=== PATIENT | female | born 1940 | race Caucasian/White ===

== ENCOUNTER → 2016-04-19 | Outpatient (CLI) | payer MEDICARE ==
[~2016-04-19] MED LIST: ASPI1TAB PO; FERR325T3 PO; FURO20TA2 PO; INSULANT SC; ISOS30TA4 PO; LISI10TA4 PO; METF500T PO; OMEP20CA3 PO; SIMV10TA2 PO; ZOLO50TA PO
[2016-04-19 13:21] LABS: MEAN CORPUSCULAR HEMOGLOBIN 26.4 pg (27.0-33.0); MEAN CORPUSCULAR HGB CONC 32.6 g/dl (32.0-36.5); RED CELL DISTRIBUTION WIDTH 15.6 % (11.5-14.5); WHITE BLOOD COUNT 7.4 K/mm3 (4.0-10.0)
[2016-04-19 13:42] LABS: ALBUMIN 3.7 GM/DL (3.2-5.2); ALBUMIN/GLOBULIN RATIO 0.93 (1.00-1.93); ALKALINE PHOSPHATASE 90 U/L (45-117); ALT/SGPT 16 U/L (12-78); ANION GAP 11 MEQ/L (8-16); AST/SGOT 11 U/L (15-37); BILIRUBIN,TOTAL 0.3 MG/DL (0.2-1.0); BLOOD UREA NITROGEN 17 MG/DL (7-18); CALCIUM LEVEL 8.6 MG/DL (8.8-10.2); CARBON DIOXIDE LEVEL 31 MEQ/L (21-32); CHLORIDE LEVEL 99 MEQ/L (98-107); CREATININE FOR GFR 0.94 MG/DL (0.55-1.02); FERRITIN 27 NG/ML (8-252); GLOMERULAR FILTRATION RATE > 60.0 (>39); GLUCOSE, FASTING 138 MG/DL (83-110); PERCENT SATURATION 12.6 % (13.2-37.4); POTASSIUM SERUM 3.6 MEQ/L (3.5-5.1); SODIUM LEVEL 141 MEQ/L (136-145); TOTAL IRON BINDING CAPACITY 427 UG/DL (250-450); TOTAL PROTEIN 7.7 GM/DL (6.4-8.2)
[2016-04-19 14:03] LABS: BANDS 1 % (< 11); EOSINOPHILS 2 % (0-5)
[2016-04-19 14:04] LABS: ANISOCYTOSIS 1+
== END ==
LOC: M WUC 09:45
PROVIDERS: ATTEND Family Medicine
DX: D64.9 Anemia, unspecified (principal); E11.9 Type 2 diabetes mellitus without complications

== ENCOUNTER → 2016-11-16 | Outpatient (CLI) | payer MEDICARE ==
[~2016-11-16] MED LIST changes: -METF500T PO; +METF500T13 PO
[2016-11-16 13:06] LABS: ALBUMIN 3.6 GM/DL (3.2-5.2); ALKALINE PHOSPHATASE 98 U/L (45-117); ALT/SGPT 13 U/L (12-78); ANION GAP 8 MEQ/L (8-16); AST/SGOT 9 U/L (15-37); BILIRUBIN,TOTAL 0.3 MG/DL (0.2-1.0); BLOOD UREA NITROGEN 14 MG/DL (7-18); CALCIUM LEVEL 8.8 MG/DL (8.8-10.2); CARBON DIOXIDE LEVEL 28 MEQ/L (21-32); CHLORIDE LEVEL 105 MEQ/L (98-107); CHOLESTEROL LEVEL 156 MG/DL (<200); CREATININE FOR GFR 0.95 MG/DL (0.55-1.02); GLOMERULAR FILTRATION RATE > 60.0 (>39); GLUCOSE, FASTING 118 MG/DL (83-110); POTASSIUM SERUM 3.7 MEQ/L (3.5-5.1); SODIUM LEVEL 141 MEQ/L (136-145); TOTAL PROTEIN 7.2 GM/DL (6.4-8.2); TRIGLYCERIDES LEVEL 181 MG/DL (<150)
[2016-11-16 13:43] LABS: MEAN CORPUSCULAR HEMOGLOBIN 30.9 pg (27.0-33.0); MEAN CORPUSCULAR HGB CONC 33.7 g/dl (32.0-36.5); MEAN CORPUSCULAR VOLUME 91.7 fl (80.0-96.0); RED CELL DISTRIBUTION WIDTH 14.1 % (11.5-14.5); WHITE BLOOD COUNT 7.3 K/mm3 (4.0-10.0)
== END ==
LOC: M WUC 09:59
PROVIDERS: ATTEND Family Medicine
DX: E11.9 Type 2 diabetes mellitus without complications (principal)

== ENCOUNTER → 2016-11-17 | Outpatient (REF) | payer MEDICARE | LOC: M LAB REF 09:00 | PROVIDERS: ATTEND Family Medicine | DX: E11.9 Type 2 diabetes mellitus without complications (principal) ==

== ENCOUNTER → 2017-10-21 | Outpatient (CLI) | payer MEDICARE ==
[2017-10-21 13:42] LABS: BASO # 0.1 10^3/uL (0.0-0.2); EOS # 0.1 10^3/uL (0.0-0.50); EOS % 1.3 % (0.0-3.0); HEMATOCRIT 38.3 % (36.0-47.0); HEMOGLOBIN 12.2 g/dl (12.0-15.5); IMMATURE GRANULOCYTE % 0.2 % (0-3.0); LYMPH # 2.1 10^3/uL (1.5-4.5); LYMPH % 25.9 % (24.0-44.0); MEAN CORPUSCULAR HEMOGLOBIN 27.1 pg (27.0-33.0); MEAN CORPUSCULAR HGB CONC 31.9 g/dl (32.0-36.5); MEAN CORPUSCULAR VOLUME 85.1 fl (80.0-96.0); MONO # 0.6 10^3/uL (0.0-0.8); MONO % 7.5 % (0.0-5.0); NEUTROPHILS # 5.2 10^3/uL (1.8-7.7); NEUTROPHILS % 64.1 % (36.0-66.0); PLATELET COUNT, AUTOMATED 326 10^3/uL (150-450); RED CELL DISTRIBUTION WIDTH 14.9 % (11.5-14.5); WHITE BLOOD COUNT 8.2 10^3/uL (4.0-10.0)
[2017-10-21 14:16] LABS: ALBUMIN 3.6 GM/DL (3.2-5.2); ALKALINE PHOSPHATASE 101 U/L (45-117); ALT/SGPT 17 U/L (12-78); ANION GAP 10 MEQ/L (8-16); AST/SGOT 8 U/L (7-37); BILIRUBIN,TOTAL 0.3 MG/DL (0.2-1.0); BLOOD UREA NITROGEN 16 MG/DL (7-18); CALCIUM LEVEL 8.8 MG/DL (8.8-10.2); CARBON DIOXIDE LEVEL 30 MEQ/L (21-32); CHLORIDE LEVEL 100 MEQ/L (98-107); CHOLESTEROL LEVEL 148 MG/DL (<200); CHOLESTEROL RISK RATIO 3.217 (<5); CREATININE FOR GFR 1.14 MG/DL (0.55-1.30); GLOMERULAR FILTRATION RATE 49.2 (>39); GLUCOSE, FASTING 268 MG/DL (70-100); HDL CHOLESTEROL 46 MG/DL (>40); LDL CHOLESTEROL 68.6 MG/DL (<100); NON-HDL-C 102 MG/DL; POTASSIUM SERUM 3.7 MEQ/L (3.5-5.1); SODIUM LEVEL 140 MEQ/L (136-145); TOTAL PROTEIN 7.6 GM/DL (6.4-8.2); TRIGLYCERIDES LEVEL 167 MG/DL (<150)
[2017-10-21 14:28] LABS: ESTIMATED AVERAGE GLUCOSE 275 MG/DL (60-110); HEMOGLOBIN A1c 11.2 %
== END ==
LOC: M WUC 09:56
DX: E11.9 Type 2 diabetes mellitus without complications (principal)
CPT/HCPCS: 80053

== ENCOUNTER 2018-06-29 11:18 | Emergency (ER) | payer MEDICARE ==
[~2018-06-29] VITALS: Ht 165.1 cm; Wt 82.7 kg
[~2018-06-29 11:18] MED LIST changes: -ASPI1TAB PO; +ASPI81TA26 PO
[2018-06-29] MEDS ORDERED: ASPI81TA26 PO (11:39)
[2018-06-29] MEDS ORDERED: IPRATROPIUM 0.5MG/ALBUTEROL 2.5MG INH SOL UD 3ML (DUONEB)(J7620) NEB ONE (12:45)
[2018-06-29] MEDS ORDERED: ACETAMINOPHEN TAB 650MG DOSE (2X325MG) PO ONE (12:45)
[2018-06-29] MEDS ORDERED: NS 500 ML IV ONE (12:45)
--- NOTE | 2018-06-29 14:00 | REP ---
CHEST, TWO VIEWS: Two views of the chest are performed and compared to a prior study of 12/26/2015 as well as other prior exams. There is mild cardiomegaly. Diffuse increased interstitial markings represent chronic interstitial fibrosis and/or edema. Findings may be slightly worse in the lung bases compared to the prior study. No consolidation is seen. Mediastinal silhouette is unchanged. There are degenerative changes of the spine. IMPRESSION: Mild cardiomegaly and diffuse chronic interstitial fibrosis and/or edema. Findings may be slightly increased since prior study of 12/26/2015. No consolidating infiltrate. Electronically Signed by Scott Sosa MD 06/29/2018 03:17 P
[2018-06-29 14:09] LABS: BASO # 0.1 10^3/uL (0.0-0.2); BASO % 0.3 % (0.0-1.0); EOS % 0.1 % (0.0-3.0); HEMATOCRIT 36.4 % (36.0-47.0); LYMPH # 1.3 10^3/uL (1.5-4.5); LYMPH % 7.4 % (24.0-44.0); MEAN CORPUSCULAR HEMOGLOBIN 29.1 pg (27.0-33.0); MEAN CORPUSCULAR VOLUME 88.3 fl (80.0-96.0); MONO # 1.3 10^3/uL (0.0-0.8); MONO % 7.6 % (0.0-5.0); NEUTROPHILS # 14.4 10^3/uL (1.8-7.7); PLATELET COUNT, AUTOMATED 292 10^3/uL (150-450); RED BLOOD COUNT 4.12 10^6/uL (4.00-5.40); WHITE BLOOD COUNT 17.2 10^3/uL (4.0-10.0)
[2018-06-29 14:41] LABS: ALBUMIN 3.2 GM/DL (3.2-5.2); ALT/SGPT 28 U/L (12-78); BILIRUBIN,DIRECT 0.1 MG/DL (0.0-0.2); BILIRUBIN,TOTAL 0.5 MG/DL (0.2-1.0); BLOOD UREA NITROGEN 17 MG/DL (7-18); CALCIUM LEVEL 9.1 MG/DL (8.8-10.2); CARBON DIOXIDE LEVEL 23 MEQ/L (21-32); CHLORIDE LEVEL 101 MEQ/L (98-107); CK-MB VALUE MASS < 1.0 NG/ML (<3.6); CPK CREATINE PHOSPHOKINASE 84 U/L (26-192); CREATININE FOR GFR 1.29 MG/DL (0.55-1.30); GLOMERULAR FILTRATION RATE 42.6 (>39); GLUCOSE, FASTING 165 MG/DL (70-100); MB/CK RELATIVE INDEX 1.19 (< OR =4); POTASSIUM SERUM 3.6 MEQ/L (3.5-5.1); SODIUM LEVEL 135 MEQ/L (136-145); TOTAL PROTEIN 8.2 GM/DL (6.4-8.2); TROPONIN I 0.08 NG/ML (< 0.10)
[2018-06-29 14:42] LABS: INFLUENZA A AMPLIFICATION NEGATIVE (NEGATIVE); INFLUENZA B AMPLIFICATION NEGATIVE (NEGATIVE)
[2018-06-29] MEDS ORDERED: AZIT-12 PO (16:00)
[2018-06-29] MEDS ORDERED: CEFD1CAP8 PO (16:00)
--- NOTE | 2018-06-29 16:02 | REP ---
Noncontrast CT study of the chest: History: Cough. Comparison chest x-ray: June 29, 2018. CT findings: There is multifocal pattern of peripheral subpleural chronic interstitial fibrosis and honeycombing. In addition, there are patchy areas of peribronchovascular ground-glass opacification in the right upper lobe, right lower lobe, and left lower lobe consistent with superimposed inflammatory disease or pneumonia. Emphysematous changes are noted in the upper lobes bilaterally. There is no evidence of pleural or pericardial effusion. No hilar or mediastinal mass is seen. There are scattered normal-sized mediastinal lymph nodes. Vascular calcification is noted. No adrenal lesion is seen. Impression: Evidence of COPD with moderate predominately peripheral subpleural fibrosis and honeycombing. There is evidence of superimposed acute infiltrate involving the lower lobes bilaterally and right upper lobe, consistent with pneumonia. Electronically Signed by Sudhakar Newman MD 06/29/2018 04:20 P
[2018-06-29] MEDS ORDERED: CEFDINIR 300 MG CAP (OMNICEF) PO ONE (16:15)
[2018-06-29] MEDS ORDERED: AZITHROMYCIN 250 MG TAB PO ONE (16:15)
[2018-06-29 16:55] VITALS: BP 126/56
--- NOTE | 2018-06-29 20:01 | ECGEPIP ---
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
== END 2018-06-29 16:57 | disposition home or self-care (01) ==
LOC: M ED 11:18
DX: J18.9 Pneumonia, unspecified organism (principal); I45.10 Unspecified right bundle-branch block; I44.4 Left anterior fascicular block; I11.0 Hypertensive heart disease with heart failure; E78.5 Hyperlipidemia, unspecified; F33.9 Major depressive disorder, recurrent, unspecified; Z79.4 Long term (current) use of insulin; Z79.82 Long term (current) use of aspirin; Z79.899 Other long term (current) drug therapy; Z98.890 Other specified postprocedural states; Z87.891 Personal history of nicotine dependence; Z91.041 Radiographic dye allergy status; Z88.8 Allergy status to other drugs, medicaments and biological substances

== ENCOUNTER → 2019-01-24 | Outpatient (CLI) | payer MEDICARE ==
[~2019-01-24] MED LIST changes: +AZIT-12 PO; +CEFD1CAP8 PO; -OMEP20CA3 PO; +OMEP20CA4 PO
[2019-01-24 12:38] LABS: HEMATOCRIT 36.8 % (36.0-47.0); HEMOGLOBIN 11.2 g/dl (12.0-15.5); MEAN CORPUSCULAR HEMOGLOBIN 29.5 pg (27.0-33.0); MEAN CORPUSCULAR HGB CONC 30.4 g/dl (32.0-36.5); MEAN CORPUSCULAR VOLUME 96.8 fl (80.0-96.0); PLATELET COUNT, AUTOMATED 338 10^3/uL (150-450); WHITE BLOOD COUNT 9.6 10^3/uL (4.0-10.0)
[2019-01-24 12:48] LABS: ALBUMIN 3.8 GM/DL (3.2-5.2); BILIRUBIN,TOTAL 0.3 MG/DL (0.2-1.0); CALCIUM LEVEL 9.2 MG/DL (8.8-10.2); CHOLESTEROL RISK RATIO 4.166 (<5); CREATININE FOR GFR 1.74 MG/DL (0.55-1.30); GLOMERULAR FILTRATION RATE 30.1 (>39); POTASSIUM SERUM 5.1 MEQ/L (3.5-5.1); TOTAL PROTEIN 7.9 GM/DL (6.4-8.2)
[2019-01-24 13:00] LABS: HEMOGLOBIN A1c 6.4 %
[2019-01-24 13:06] LABS: MALB URINE SIEMENS 17.4 MG/L; MAU/CREAT RATIO 12.4 MCG/MG (0.0-30.0)
== END ==
LOC: M WUC 09:43
PROVIDERS: ATTEND Family Medicine
DX: E11.9 Type 2 diabetes mellitus without complications (principal)

== ENCOUNTER → 2020-01-23 | Outpatient (CLI) | payer MEDICARE ==
[~2020-01-23] MED LIST changes: +OMEP1CAP73 PO; -OMEP20CA4 PO; -SIMV10TA2 PO; +SIMV10TA21 PO
[2020-01-23 16:51] LABS: HEMATOCRIT 40.6 % (36.0-47.0); HEMOGLOBIN 12.3 g/dl (12.0-15.5); MEAN CORPUSCULAR HEMOGLOBIN 30.2 pg (27.0-33.0); MEAN CORPUSCULAR HGB CONC 30.3 g/dl (32.0-36.5); MEAN CORPUSCULAR VOLUME 99.8 fl (80.0-96.0); PLATELET COUNT, AUTOMATED 335 10^3/uL (150-450); RED BLOOD COUNT 4.07 10^6/uL (4.00-5.40); WHITE BLOOD COUNT 8.7 10^3/uL (4.0-10.0)
[2020-01-23 17:17] LABS: HEMOGLOBIN A1c 6.2 %
[2020-01-23 17:26] LABS: ALBUMIN 3.9 GM/DL (3.2-5.2); BILIRUBIN,TOTAL 0.3 MG/DL (0.2-1.0); CALCIUM LEVEL 9.1 MG/DL (8.8-10.2); CHOLESTEROL RISK RATIO 4.782 (<5); CREATININE FOR GFR 1.52 MG/DL (0.55-1.30); GLOMERULAR FILTRATION RATE 35.1 (>39); POTASSIUM SERUM 4.2 MEQ/L (3.5-5.1); TOTAL PROTEIN 7.6 GM/DL (6.4-8.2)
[2020-01-23 17:32] LABS: MALB URINE SIEMENS 8.4 MG/L; MAU/CREAT RATIO 6.2 MCG/MG (0.0-30.0)
== END ==
LOC: M WUC 10:46
PROVIDERS: ATTEND Family Medicine
DX: E11.9 Type 2 diabetes mellitus without complications (principal)

== ENCOUNTER → 2021-02-03 | Outpatient (CLI) | payer MEDICARE ==
[~2021-02-03] MED LIST changes: +ISOS1TAB35 PO; -ISOS30TA4 PO; +LISI10TA22 PO; -LISI10TA4 PO
[2021-02-03 14:07] LABS: HEMATOCRIT 37.4 % (36.0-47.0); HEMOGLOBIN 11.5 g/dl (12.0-15.5); MEAN CORPUSCULAR HEMOGLOBIN 30.7 pg (27.0-33.0); MEAN CORPUSCULAR HGB CONC 30.7 g/dl (32.0-36.5); PLATELET COUNT, AUTOMATED 285 10^3/uL (150-450); RED BLOOD COUNT 3.74 10^6/uL (4.00-5.40); WHITE BLOOD COUNT 9.4 10^3/uL (4.0-10.0)
[2021-02-03 14:43] LABS: CALCIUM LEVEL 8.9 MG/DL (8.8-10.2); CREATININE FOR GFR 1.95 MG/DL (0.55-1.30); GLOMERULAR FILTRATION RATE 26.3 (>32); POTASSIUM SERUM 4.4 MEQ/L (3.5-5.1)
[2021-02-03 14:44] LABS: ALBUMIN 3.8 GM/DL (3.2-5.2); BILIRUBIN,TOTAL 0.3 MG/DL (0.2-1.0); CHOLESTEROL RISK RATIO 4.113 (<5); TOTAL PROTEIN 7.5 GM/DL (6.4-8.2)
[2021-02-03 19:46] LABS: HEMOGLOBIN A1c 5.9 %
== END ==
LOC: M WUC 09:41
PROVIDERS: ATTEND Family Medicine
DX: E11.9 Type 2 diabetes mellitus without complications (principal)

== ENCOUNTER → 2021-04-29 | Outpatient (CLI) | payer MEDICARE ==
[~2021-04-29] MED LIST changes: -CEFD1CAP8 PO; +CEFD300C41 PO
[2021-04-29 12:31] LABS: BILIRUBIN,TOTAL 0.2 MG/DL (0.2-1.0); CALCIUM LEVEL 9.2 MG/DL (8.8-10.2); CREATININE FOR GFR 1.63 MG/DL (0.55-1.30); GLOMERULAR FILTRATION RATE 32.3 (>32); POTASSIUM SERUM 4.8 MEQ/L (3.5-5.1); TOTAL PROTEIN 7.5 GM/DL (6.4-8.2)
[2021-04-29 12:32] LABS: HEMOGLOBIN A1c 5.8 %
== END ==
LOC: M WUC 09:16
PROVIDERS: ATTEND Family Medicine
DX: E11.9 Type 2 diabetes mellitus without complications (principal)

== ENCOUNTER → 2021-10-30 | Outpatient (CLI) | payer MEDICARE ==
[2021-10-30 17:10] LABS: BASO # 0.1 10^3/uL (0.0-0.2); BASO % 0.9 % (0.0-1.0); EOS # 0.2 10^3/uL (0.0-0.5); EOS % 2.7 % (0.0-3.0); HEMATOCRIT 42.8 % (36.0-47.0); LYMPH # 1.8 10^3/uL (1.5-5.0); LYMPH % 21.3 % (24.0-44.0); MEAN CORPUSCULAR HGB CONC 30.4 g/dl (32.0-36.5); MEAN CORPUSCULAR VOLUME 98.8 fl (80.0-96.0); MONO # 0.6 10^3/uL (0.0-0.8); MONO % 6.9 % (2.0-8.0); NEUTROPHILS # 5.8 10^3/uL (1.5-8.5); PLATELET COUNT, AUTOMATED 250 10^3/uL (150-450); RED BLOOD COUNT 4.33 10^6/uL (4.00-5.40); WHITE BLOOD COUNT 8.6 10^3/uL (4.0-10.0)
[2021-10-30 17:41] LABS: HEMOGLOBIN A1c 6.1 %
[2021-10-30 18:06] LABS: BILIRUBIN,TOTAL 0.3 MG/DL (0.2-1.0); CALCIUM LEVEL 9.1 MG/DL (8.8-10.2); CREATININE FOR GFR 1.66 MG/DL (0.55-1.30); GLOMERULAR FILTRATION RATE 31.6 (>32); POTASSIUM SERUM 4.4 MEQ/L (3.5-5.1); THYROID STIMULATING HORMONE 4.13 uIU/ML (0.358-3.740); TOTAL PROTEIN 7.9 GM/DL (6.4-8.2)
== END ==
LOC: M WUC 11:21
PROVIDERS: ATTEND Family Medicine
DX: E11.9 Type 2 diabetes mellitus without complications (principal); G31.84 Mild cognitive impairment of uncertain or unknown etiology

== ENCOUNTER → 2021-12-30 | Outpatient (CLI) | payer MEDICARE ==
[2021-12-30 14:27] LABS: FREE T3 2.8 PG/ML (2.2-4.0); FREE T4 0.9 NG/DL (0.76-1.46); THYROID STIMULATING HORMONE 5.89 uIU/ML (0.358-3.740)
== END ==
LOC: M WUC 09:22
PROVIDERS: ATTEND Family Medicine
DX: E07.9 Disorder of thyroid, unspecified (principal)

== ENCOUNTER → 2022-02-03 | Outpatient (CLI) | payer MEDICARE ==
[2022-02-03 13:36] LABS: HEMATOCRIT 40.6 % (36.0-47.0); HEMOGLOBIN 12.7 g/dl (12.0-15.5); MEAN CORPUSCULAR HEMOGLOBIN 30.8 pg (27.0-33.0); MEAN CORPUSCULAR HGB CONC 31.3 g/dl (32.0-36.5); MEAN CORPUSCULAR VOLUME 98.5 fl (80.0-96.0); PLATELET COUNT, AUTOMATED 251 10^3/uL (150-450); RED BLOOD COUNT 4.12 10^6/uL (4.00-5.40); WHITE BLOOD COUNT 8.5 10^3/uL (4.0-10.0)
[2022-02-03 14:33] LABS: ALBUMIN 3.7 GM/DL (3.2-5.2); BILIRUBIN,TOTAL 0.3 MG/DL (0.2-1.0); CALCIUM LEVEL 8.8 MG/DL (8.8-10.2); CHOLESTEROL RISK RATIO 3.423 (<5); CREATININE FOR GFR 1.35 MG/DL (0.55-1.30); GLOMERULAR FILTRATION RATE 40.1 (>32); PERCENT SATURATION 26.4 % (13.2-45.0); POTASSIUM SERUM 4.5 MEQ/L (3.5-5.1); TOTAL PROTEIN 7.3 GM/DL (6.4-8.2)
[2022-02-03 20:26] LABS: HEMOGLOBIN A1c 6.3 %
== END ==
LOC: M WUC 10:00
PROVIDERS: ATTEND Family Medicine
DX: D64.9 Anemia, unspecified (principal); E11.9 Type 2 diabetes mellitus without complications

== ENCOUNTER 2022-02-21 07:11 | Inpatient (IN) | payer MEDICARE ==
[~2022-02-21] VITALS: Ht 162.6 cm; Wt 77.0 kg
[2022-02-21 07:56] LABS: HEMATOCRIT 38.7 % (36.0-47.0); HEMOGLOBIN 12.3 g/dl (12.0-15.5); MEAN CORPUSCULAR HEMOGLOBIN 30.7 pg (27.0-33.0); MEAN CORPUSCULAR HGB CONC 31.8 g/dl (32.0-36.5); MEAN CORPUSCULAR VOLUME 96.5 fl (80.0-96.0); PLATELET COUNT, AUTOMATED 175 10^3/uL (150-450); RED BLOOD COUNT 4.01 10^6/uL (4.00-5.40); WHITE BLOOD COUNT 16.7 10^3/uL (4.0-10.0)
[2022-02-21 07:57] LABS: VENOUS BASE EXCESS -8.6 (-2.0-2.0); VENOUS HCO3 17.9 MEQ/L (23.0-27.0); VENOUS PARTIAL PRESSURE CO2 40.8 mmHg (38.0-50.0); VENOUS PARTIAL PRESSURE O2 36.6 mmHg (30.0-50.0); VENOUS PH 7.261 UNITS (7.330-7.430); VENOUS TOTAL CO2 19.2 MEQ/L (24.0-28.0)
[2022-02-21 08:23] LABS: ALBUMIN 3.6 G/DL (3.2-5.2); BILIRUBIN,DIRECT 0.2 MG/DL (<0.4); BILIRUBIN,TOTAL 0.6 MG/DL (0.3-1.2); CALCIUM LEVEL 8.7 MG/DL (8.3-10.6); CREATININE FOR GFR 1.44 MG/DL (0.55-1.30); GLOMERULAR FILTRATION RATE 37.2 (>32); POTASSIUM SERUM 4.1 MMOL/L (3.5-5.1); THYROID STIMULATING HORMONE 4.084 uIU/ML (0.55-4.78); THYROXINE (T4) 6.8 UG/DL (4.5-10.9); TOTAL PROTEIN 7.1 G/DL (5.7-8.2)
[2022-02-21 08:27] LABS: ATYPICAL LYMPH 5 % (0-5); BASOPHILS 1 % (0-1); LYMPHOCYTES 7 % (16-44); MONOCYTES 3 % (0-5); NEUTROPHILS 54 % (28-66); PLATELET ESTIMATE NORMAL (NORMAL)
[2022-02-21] MEDS ORDERED: NS 1,000 ML IV ONE ×2 (08:40→17:00)
[2022-02-21] MEDS ORDERED: methylPREDNISolone 125MG 2ML VIAL IV ONE (08:40)
[2022-02-21] MEDS: COMBIVENT RESPIMAT 100-20MCG INHALER 4GM INH SCH ×3 (08:55→09:07)
[2022-02-21] MEDS ORDERED: AZITHROMYCIN 250MG TABLET PO ONE (09:20)
[2022-02-21] MEDS ORDERED: cefTRIAXone SOD 1 GM in D5W MINI-BAG PLUS 50 ML IV ONE ×2 (09:20→14:00)
[2022-02-21] MEDS ORDERED: IPRATROPIUM 0.5MG/ALBUTEROL 2.5MG INH SOL UD 3ML (DUONEB) NEB PRN (10:40)
[2022-02-21] MEDS ORDERED: GLUCAGON INJ 1MG VIAL SC PRN (10:55)
[2022-02-21] MEDS ORDERED: GLUCOSE 4GM CHEW TABLET PO PRN (10:55)
[2022-02-21] MEDS ORDERED: DEXTROSE 50% 50 ML SYRINGE IV PRN (10:55)
[2022-02-21] MEDS ORDERED: ZOLO100T PO (11:15)
[2022-02-21] MEDS ORDERED: PRESCAP PO (11:15)
[2022-02-21] MEDS ORDERED: D-ME1CAP36 PO (11:15)
[2022-02-21] MEDS ORDERED: LANTINJ4 SC (11:15)
[2022-02-21] MEDS ORDERED: SIMV40TA20 PO (11:15)
[2022-02-21] MEDS ORDERED: FERR1TAB8 PO (11:15)
[2022-02-21] MEDS ORDERED: FURO40TA2 PO (11:15)
[2022-02-21] MEDS ORDERED: HOME MED LIST COMPLETE! XX SCH (11:20)
[2022-02-21] MEDS ORDERED: NS 1,000 ML IV SCH (12:00)
[2022-02-21] MEDS: IPRATROPIUM 0.5MG/ALBUTEROL 2.5MG INH SOL UD 3ML (DUONEB) NEB SCH ×4 (12:00→23:23)
[2022-02-21] MEDS ORDERED: IPRATROPIUM 0.5MG/ALBUTEROL 2.5MG INH SOL UD 3ML (DUONEB) NEB SCH (12:00)
[2022-02-21 12:55] VITALS: BP 107/50
[2022-02-21] MEDS ORDERED: NS 2,000 ML IV ONE (13:30)
[2022-02-21] MEDS: methylPREDNISolone 40MG 1ML VIAL IV SCH ×2 (13:41→21:30)
[2022-02-21] MEDS: INSULIN LISPRO (NovoLOG) PER UNIT SC SCH ×5 (13:41→21:00)
[2022-02-21] MEDS: ASPIRIN 81 MG CHEW TABLET PEG SCH (13:42)
[2022-02-21] MEDS: SERTRALINE 100 MG TAB PO SCH (13:42)
[2022-02-21] MEDS: DOXYCYCLINE HYCLATE 100 MG in D5W MINI-BAG PLUS 100 ML IV SCH (17:24)
[2022-02-21 18:52] LABS: CALCIUM LEVEL 7.8 MG/DL (8.3-10.6); CREATININE FOR GFR 1.21 MG/DL (0.55-1.30); GLOMERULAR FILTRATION RATE 45.5 (>32); POTASSIUM SERUM 3.9 MMOL/L (3.5-5.1)
[2022-02-21 21:00] VITALS: BP 108/54
[2022-02-21] MEDS: LEVEMIR (INSULIN DETEMIR) 1 UNITS/0.01ML SC SCH (21:30)
[2022-02-21] MEDS: SIMVASTATIN 40 MG TAB PO SCH (21:30)
[2022-02-22] MEDS: methylPREDNISolone 40MG 1ML VIAL IV SCH ×4 (02:56→18:05)
[2022-02-22] MEDS: IPRATROPIUM 0.5MG/ALBUTEROL 2.5MG INH SOL UD 3ML (DUONEB) NEB SCH ×5 (03:06→21:06)
[2022-02-22] MEDS: DOXYCYCLINE HYCLATE 100 MG in D5W MINI-BAG PLUS 100 ML IV SCH (04:43)
[2022-02-22 06:00] VITALS: BP 115/57
[2022-02-22 06:34] LABS: HEMATOCRIT 31.3 % (36.0-47.0); MEAN CORPUSCULAR HEMOGLOBIN 31.1 pg (27.0-33.0); MEAN CORPUSCULAR HGB CONC 31.9 g/dl (32.0-36.5); MEAN CORPUSCULAR VOLUME 97.2 fl (80.0-96.0); PLATELET COUNT, AUTOMATED 135 10^3/uL (150-450); RED BLOOD COUNT 3.22 10^6/uL (4.00-5.40); WHITE BLOOD COUNT 9.6 10^3/uL (4.0-10.0)
[2022-02-22 07:09] LABS: CALCIUM LEVEL 8.1 MG/DL (8.3-10.6); CHOLESTEROL RISK RATIO 3.06 (<5); CREATININE FOR GFR 1.29 MG/DL (0.55-1.30); GLOMERULAR FILTRATION RATE 42.2 (>32); HDL CHOLESTEROL 37.2 MG/DL (>40); LDL CHOLESTEROL 63.2 MG/DL (<100); POTASSIUM SERUM 3.9 MMOL/L (3.5-5.1)
[2022-02-22 07:22] LABS: HEMOGLOBIN A1c 5.9 % (4.0-6.0)
[2022-02-22 07:40] LABS: EOSINOPHILS 1 % (0-3); LYMPHOCYTES 7 % (16-44); MONOCYTES 2 % (0-5); NEUTROPHILS 86 % (28-66); PLATELET ESTIMATE NORMAL (NORMAL)
[2022-02-22] MEDS: SERTRALINE 100 MG TAB PO SCH (09:04)
[2022-02-22] MEDS: ASPIRIN 81 MG CHEW TABLET PEG SCH (09:04)
[2022-02-22] MEDS: cefTRIAXone SOD 2 GM in D5W MINI-BAG PLUS 50 ML IV SCH (09:04)
[2022-02-22] MEDS: INSULIN LISPRO (NovoLOG) PER UNIT SC SCH ×7 (09:05→20:40)
[2022-02-22 14:00] VITALS: BP 115/56
[2022-02-22] MEDS: DOXYCYCLINE HYCLATE 100MG TABLET PO SCH (16:01)
[2022-02-22] MEDS: SIMVASTATIN 40 MG TAB PO SCH (20:47)
[2022-02-22] MEDS: LEVEMIR (INSULIN DETEMIR) 1 UNITS/0.01ML SC SCH (20:48)
[2022-02-22 21:00] VITALS: BP 107/52
[2022-02-23] MEDS: methylPREDNISolone 40MG 1ML VIAL IV SCH ×4 (01:34→17:44)
[2022-02-23] MEDS: IPRATROPIUM 0.5MG/ALBUTEROL 2.5MG INH SOL UD 3ML (DUONEB) NEB SCH ×7 (03:43→23:35)
[2022-02-23 06:00] VITALS: BP 117/60
[2022-02-23] MEDS: DOXYCYCLINE HYCLATE 100MG TABLET PO SCH ×2 (06:16→17:44)
[2022-02-23 06:17] LABS: MEAN CORPUSCULAR HEMOGLOBIN 31.3 pg (27.0-33.0); MEAN CORPUSCULAR HGB CONC 32.3 g/dl (32.0-36.5); MEAN CORPUSCULAR VOLUME 96.9 fl (80.0-96.0); PLATELET COUNT, AUTOMATED 180 10^3/uL (150-450)
[2022-02-23 06:37] LABS: CALCIUM LEVEL 8.8 MG/DL (8.3-10.6)
[2022-02-23 06:40] LABS: CREATININE FOR GFR 1.34 MG/DL (0.55-1.30); GLOMERULAR FILTRATION RATE 40.4 (>32)
[2022-02-23 06:43] LABS: ATYPICAL LYMPH 1 % (0-5); LYMPHOCYTES 5 % (16-44); METAMYELOCYTES 1 % (0-0); MONOCYTES 3 % (0-5); NEUTROPHILS 88 % (28-66); PLATELET ESTIMATE NORMAL (NORMAL)
[2022-02-23 06:44] LABS: ANISOCYTOSIS 1+
[2022-02-23] MEDS: ASPIRIN 81 MG CHEW TABLET PEG SCH (08:38)
[2022-02-23] MEDS: cefTRIAXone SOD 2 GM in D5W MINI-BAG PLUS 50 ML IV SCH (08:38)
[2022-02-23] MEDS: SERTRALINE 100 MG TAB PO SCH (08:38)
[2022-02-23] MEDS: INSULIN LISPRO (NovoLOG) PER UNIT SC SCH ×7 (08:39→21:00)
[2022-02-23 14:00] VITALS: BP 121/66
[2022-02-23 21:00] VITALS: BP 120/65
[2022-02-23] MEDS: SIMVASTATIN 40 MG TAB PO SCH (21:06)
[2022-02-23] MEDS: LEVEMIR (INSULIN DETEMIR) 1 UNITS/0.01ML SC SCH (21:06)
[2022-02-24] MEDS: IPRATROPIUM 0.5MG/ALBUTEROL 2.5MG INH SOL UD 3ML (DUONEB) NEB SCH ×4 (04:00→15:58)
[2022-02-24 05:25] VITALS: BP 125/67
[2022-02-24 05:56] LABS: HEMATOCRIT 32.7 % (36.0-47.0); HEMOGLOBIN 10.2 g/dl (12.0-15.5); MEAN CORPUSCULAR HEMOGLOBIN 30.7 pg (27.0-33.0); MEAN CORPUSCULAR HGB CONC 31.2 g/dl (32.0-36.5); MEAN CORPUSCULAR VOLUME 98.5 fl (80.0-96.0); PLATELET COUNT, AUTOMATED 202 10^3/uL (150-450); RED BLOOD COUNT 3.32 10^6/uL (4.00-5.40)
[2022-02-24] MEDS: DOXYCYCLINE HYCLATE 100MG TABLET PO SCH (06:13)
[2022-02-24 06:14] LABS: POTASSIUM SERUM 4.2 MMOL/L (3.5-5.1)
[2022-02-24 06:20] LABS: CALCIUM LEVEL 8.8 MG/DL (8.3-10.6)
[2022-02-24 06:22] LABS: CREATININE FOR GFR 1.38 MG/DL (0.55-1.30); GLOMERULAR FILTRATION RATE 39.1 (>32)
[2022-02-24 06:24] LABS: LYMPHOCYTES 6 % (16-44); METAMYELOCYTES 1 % (0-0); MONOCYTES 3 % (0-5); MYELOCYTES 1 % (0-0); NEUTROPHILS 89 % (28-66)
[2022-02-24 06:25] LABS: ANISOCYTOSIS 1+; PLATELET ESTIMATE NORMAL (NORMAL)
[2022-02-24] MEDS ORDERED: methylPREDNISolone 40MG 1ML VIAL IV SCH (07:00)
[2022-02-24] MEDS: cefTRIAXone SOD 2 GM in D5W MINI-BAG PLUS 50 ML IV SCH (08:09)
[2022-02-24] MEDS: INSULIN LISPRO (NovoLOG) PER UNIT SC SCH ×4 (08:10→12:08)
[2022-02-24 08:55] VITALS: BP 131/68
[2022-02-24] MEDS ORDERED: ASPIRIN 81MG ENTERIC TABLET PO SCH (09:00)
[2022-02-24] MEDS ORDERED: FERROUS SULFATE 325MG TAB PO SCH (09:00)
[2022-02-24] MEDS: SERTRALINE 100 MG TAB PO SCH (10:13)
[2022-02-24 13:35] VITALS: BP 134/67
[2022-02-24] MEDS ORDERED: PRED10TA2 PO (13:43)
[2022-02-24] MEDS ORDERED: CEFD300C41 PO (13:43)
[2022-02-24] MEDS ORDERED: DOXY-444 PO (13:43)
[2022-02-24] MEDS ORDERED: AMLO25TA PO (13:47)
[2022-02-24] MEDS ORDERED: COMBAER6 INH (13:48)
[2022-02-24] MEDS ORDERED: ALBU8.5H INH (14:37)
[2022-02-24] MEDS ORDERED: IPRAINH INH (14:41)
== END 2022-02-24 16:10 | disposition home or self-care (01) | DRG 193 ==
LOC: M ED 07:11 → EDBD 07:11 → M ED INP 10:39 → ENRESERV 11:21 → M MSPAV 12:04
PROVIDERS: ADMIT General Practice; ATTEND Internal Medicine
DX: J12.1 Respiratory syncytial virus pneumonia (principal); J96.21 Acute and chronic respiratory failure with hypoxia; I50.32 Chronic diastolic (congestive) heart failure; J44.0 Chronic obstructive pulmonary disease with (acute) lower respiratory infection; I13.0 Hypertensive heart and chronic kidney disease with heart failure and stage 1 through stage 4 chronic kidney disease, or unspecified chronic kidney disease; E87.20 Acidosis, unspecified; J44.1 Chronic obstructive pulmonary disease with (acute) exacerbation; N17.9 Acute kidney failure, unspecified; E11.22 Type 2 diabetes mellitus with diabetic chronic kidney disease; Z87.891 Personal history of nicotine dependence; K21.9 Gastro-esophageal reflux disease without esophagitis; E78.5 Hyperlipidemia, unspecified; F32.A Depression, unspecified; N18.30 Chronic kidney disease, stage 3 unspecified; Z90.79 Acquired absence of other genital organ(s); I45.10 Unspecified right bundle-branch block; Z20.822 Contact with and (suspected) exposure to COVID-19; Z79.82 Long term (current) use of aspirin; Z79.84 Long term (current) use of oral hypoglycemic drugs; Z79.4 Long term (current) use of insulin; Z79.899 Other long term (current) drug therapy; Z88.3 Allergy status to other anti-infective agents; Z88.8 Allergy status to other drugs, medicaments and biological substances; Z91.041 Radiographic dye allergy status; D50.9 Iron deficiency anemia, unspecified; D72.829 Elevated white blood cell count, unspecified

== ENCOUNTER → 2022-03-17 | Outpatient (CLI) | payer MEDICARE ==
[~2022-03-17] MED LIST changes: +ALBU8.5H INH; +AMLO25TA PO; +COMBAER6 INH; +D-ME1CAP36 PO; +DOXY-444 PO; +FERR1TAB8 PO; +FURO40TA2 PO; +IPRAINH INH; +LANTINJ4 SC; +PRED10TA2 PO; +PRESCAP PO; +SIMV40TA20 PO; +ZOLO100T PO
[2022-03-17 17:51] LABS: BASO % 0.4 % (0.0-1.0); EOS # 0.3 10^3/uL (0.0-0.5); EOS % 2.9 % (0.0-3.0); HEMATOCRIT 31.5 % (36.0-47.0); HEMOGLOBIN 9.3 g/dl (12.0-15.5); LYMPH # 1.7 10^3/uL (1.5-5.0); LYMPH % 18.3 % (24.0-44.0); MEAN CORPUSCULAR HGB CONC 29.5 g/dl (32.0-36.5); MEAN CORPUSCULAR VOLUME 101.6 fl (80.0-96.0); MONO # 0.8 10^3/uL (0.0-0.8); MONO % 8.8 % (2.0-8.0); NEUTROPHILS # 6.3 10^3/uL (1.5-8.5); NEUTROPHILS % 69.2 % (36.0-66.0); PLATELET COUNT, AUTOMATED 333 10^3/uL (150-450); WHITE BLOOD COUNT 9.1 10^3/uL (4.0-10.0)
[2022-03-17 18:03] LABS: CREATININE FOR GFR 1.31 MG/DL (0.55-1.30); GLOMERULAR FILTRATION RATE 41.5 (>32); POTASSIUM SERUM 3.3 MMOL/L (3.5-5.1)
== END ==
LOC: M WUC 10:34
PROVIDERS: ATTEND Family Medicine
DX: J18.9 Pneumonia, unspecified organism (principal)

== ENCOUNTER 2022-04-16 10:14 | Inpatient (IN) | payer MEDICARE ==
[~2022-04-16] VITALS: Ht 160 cm; Wt 64.9 kg
[2022-04-16] MEDS ORDERED: IPRATROPIUM 0.5MG/ALBUTEROL 2.5MG INH SOL UD 3ML (DUONEB) NEB ONE (10:25)
[2022-04-16] MEDS ORDERED: methylPREDNISolone 125MG 2ML VIAL IV ONE (10:25)
[2022-04-16] MEDS ORDERED: ALBUTEROL SULFATE 2.5MG/0.5ML INH NEB SOLN INH ONE (10:25)
[2022-04-16 11:01] LABS: BASO % 0.6 % (0.0-1.0); EOS % 0.2 % (0.0-3.0); HEMOGLOBIN 8.6 g/dl (12.0-15.5); LYMPH % 20.6 % (24.0-44.0); MEAN CORPUSCULAR HEMOGLOBIN 26.4 pg (27.0-33.0); MEAN CORPUSCULAR HGB CONC 29.7 g/dl (32.0-36.5); MONO # 0.6 10^3/uL (0.0-0.8); MONO % 12.3 % (2.0-8.0); NEUTROPHILS # 3.3 10^3/uL (1.5-8.5); NEUTROPHILS % 65.9 % (36.0-66.0); PLATELET COUNT, AUTOMATED 296 10^3/uL (150-450); RED BLOOD COUNT 3.26 10^6/uL (4.00-5.40)
[2022-04-16 11:12] LABS: INR 0.99; PROTHROMBIN TIME 13.3 SECONDS (12.5-14.5)
[2022-04-16 11:32] LABS: ALBUMIN 3.2 G/DL (3.2-5.2); ALKALINE PHOSPHATASE 101 U/L (46-116); ALT/SGPT 15 U/L (7.0-40); AST/SGOT 23 U/L (<34); BILIRUBIN,DIRECT 0.2 MG/DL (<0.4); BILIRUBIN,TOTAL 0.5 MG/DL (0.3-1.2); BLOOD UREA NITROGEN 15 MG/DL (9-23); CALCIUM LEVEL 7.9 MG/DL (8.3-10.6); CARBON DIOXIDE LEVEL 25 MMOL/L (20-31); CHLORIDE LEVEL 104 MMOL/L (98-107); CK-MB VALUE MASS < 1.0 NG/ML (<3.6); CPK CREATINE PHOSPHOKINASE 29 U/L (34-145); CREATININE FOR GFR 1.23 MG/DL (0.55-1.30); GLOMERULAR FILTRATION RATE 44.6 (>32); GLUCOSE, FASTING 124 MG/DL (74-106); MB/CK RELATIVE INDEX 3.44 (< OR =4); POTASSIUM SERUM 3.4 MMOL/L (3.5-5.1); SODIUM LEVEL 139 MMOL/L (136-145); TOTAL PROTEIN 6.8 G/DL (5.7-8.2)
[2022-04-16 11:34] LABS: THYROXINE (T4) 10.4 UG/DL (4.5-10.9)
[2022-04-16 11:35] LABS: THYROID STIMULATING HORMONE 3.835 uIU/ML (0.55-4.78)
[2022-04-16 12:34] LABS: CK-MB VALUE MASS < 1.0 NG/ML (<3.6)
[2022-04-16 12:40] LABS: CPK CREATINE PHOSPHOKINASE 26 U/L (34-145); MB/CK RELATIVE INDEX 3.84 (< OR =4)
[2022-04-16] MEDS ORDERED: SIMV20TA22 PO (13:50)
[2022-04-16] MEDS ORDERED: VENTAER INH (13:50)
[2022-04-16] MEDS ORDERED: PANT40TA29 PO (13:50)
[2022-04-16] MEDS ORDERED: HOME MED LIST COMPLETE! XX SCH (13:55)
[2022-04-16] MEDS ORDERED: GLUCOSE 4GM CHEW TABLET PO PRN (15:10)
[2022-04-16] MEDS ORDERED: GLUCAGON INJ 1MG VIAL SC PRN (15:10)
[2022-04-16] MEDS ORDERED: DEXTROSE 50% 50ML SYRINGE IV PRN (15:10)
[2022-04-16] MEDS ORDERED: ALBUTEROL 90 MCG/ACT 8GM HFA INHALER INH PRN (15:15)
[2022-04-16 15:57] LABS: ALBUMIN 3.1 G/DL (3.2-5.2); BILIRUBIN,DIRECT 0.2 MG/DL (<0.4); BILIRUBIN,TOTAL 0.5 MG/DL (0.3-1.2); C REACTIVE PROTEIN QUANTITATIV 1.7 MG/DL (<1.0); TOTAL PROTEIN 6.5 G/DL (5.7-8.2)
[2022-04-16 15:58] LABS: PROTHROMBIN TIME 13.4 SECONDS (12.5-14.5)
[2022-04-16 15:59] LABS: PARTIAL THROMBOPLASTIN TIME 31.6 SECONDS (24.8-34.2)
[2022-04-16 16:00] LABS: FERRITIN 17.8 NG/ML (7.3-270.7)
[2022-04-16 16:02] LABS: D-DIMER QUANT 797.04 ng/ml (<500)
[2022-04-16 16:40] VITALS: BP 131/56
[2022-04-16] MEDS ORDERED: POTASSIUM CHLORIDE 10MEQ SR TABLET PO ONE (18:00)
[2022-04-16] MEDS ORDERED: REMDESIVIR 200 MG in NS 250 ML IV ONE (18:00)
[2022-04-16] MEDS: FUROSEMIDE 20 MG TAB PO SCH (18:34)
[2022-04-16] MEDS: SERTRALINE 100 MG TAB PO SCH (18:34)
[2022-04-16] MEDS: INSULIN LISPRO (NovoLOG) PER UNIT SC SCH ×2 (18:35→22:05)
[2022-04-16] MEDS: COMBIVENT RESPIMAT 100-20MCG INHALER 4GM INH SCH (20:00)
[2022-04-16 22:00] VITALS: BP 127/54
[2022-04-16] MEDS: BENZONATATE 100MG CAPSULE PO SCH (22:03)
[2022-04-16] MEDS: PANTOPRAZOLE 40MG TAB (PROTONIX) PO SCH (22:03)
[2022-04-16] MEDS: SIMVASTATIN 20 MG TAB PO SCH (22:03)
[2022-04-16] MEDS: LEVEMIR (INSULIN DETEMIR) 1 UNITS/0.01ML SC SCH (22:04)
[2022-04-16] MEDS: ENOXAPARIN 30MG/0.3ML SYRINGE (J1650 PER 10MG) SC SCH (22:06)
[2022-04-17] VITALS (9 sets, daily range): BP systolic 120–143; BP diastolic 56–74; O2SAT 79–94
[2022-04-17] MEDS: COMBIVENT RESPIMAT 100-20MCG INHALER 4GM INH SCH ×7 (04:00→23:39)
[2022-04-17 05:46] LABS: HEMATOCRIT 26.1 % (36.0-47.0); HEMOGLOBIN 7.8 g/dl (12.0-15.5); LYMPH % 21.7 % (24.0-44.0); MEAN CORPUSCULAR HEMOGLOBIN 26.8 pg (27.0-33.0); MEAN CORPUSCULAR HGB CONC 29.9 g/dl (32.0-36.5); MEAN CORPUSCULAR VOLUME 89.7 fl (80.0-96.0); MONO # 0.6 10^3/uL (0.0-0.8); MONO % 12.6 % (2.0-8.0); NEUTROPHILS # 3.1 10^3/uL (1.5-8.5); NEUTROPHILS % 65.5 % (36.0-66.0); PLATELET COUNT, AUTOMATED 264 10^3/uL (150-450); RED BLOOD COUNT 2.91 10^6/uL (4.00-5.40); WHITE BLOOD COUNT 4.8 10^3/uL (4.0-10.0)
[2022-04-17 06:14] LABS: ALBUMIN 2.8 G/DL (3.2-5.2); BILIRUBIN,TOTAL 0.3 MG/DL (0.3-1.2); CALCIUM LEVEL 8.4 MG/DL (8.3-10.6); CREATININE FOR GFR 1.21 MG/DL (0.55-1.30); GLOMERULAR FILTRATION RATE 45.5 (>32); POTASSIUM SERUM 4.1 MMOL/L (3.5-5.1)
[2022-04-17] MEDS: SERTRALINE 100 MG TAB PO SCH (08:31)
[2022-04-17] MEDS: BENZONATATE 100MG CAPSULE PO SCH ×3 (08:31→21:21)
[2022-04-17] MEDS: INSULIN LISPRO (NovoLOG) PER UNIT SC SCH ×4 (08:31→21:00)
[2022-04-17] MEDS: FERROUS SULFATE 325MG TAB PO SCH (08:31)
[2022-04-17] MEDS: FUROSEMIDE 20 MG TAB PO SCH (08:31)
[2022-04-17] MEDS: PANTOPRAZOLE 40MG TAB (PROTONIX) PO SCH ×2 (08:31→21:21)
[2022-04-17] MEDS: REMDESIVIR 100 MG in NS 250 ML IV SCH (17:42)
[2022-04-17] MEDS: ENOXAPARIN 30MG/0.3ML SYRINGE (J1650 PER 10MG) SC SCH (21:20)
[2022-04-17] MEDS: SIMVASTATIN 20 MG TAB PO SCH (21:21)
[2022-04-17] MEDS: LEVEMIR (INSULIN DETEMIR) 1 UNITS/0.01ML SC SCH (21:21)
[2022-04-18] MEDS: COMBIVENT RESPIMAT 100-20MCG INHALER 4GM INH SCH ×6 (04:00→23:13)
[2022-04-18 05:51] LABS: BASO % 0.4 % (0.0-1.0); HEMATOCRIT 27.1 % (36.0-47.0); HEMOGLOBIN 8.1 g/dl (12.0-15.5); LYMPH # 1.6 10^3/uL (1.5-5.0); LYMPH % 22.4 % (24.0-44.0); MEAN CORPUSCULAR HEMOGLOBIN 26.9 pg (27.0-33.0); MEAN CORPUSCULAR HGB CONC 29.9 g/dl (32.0-36.5); MONO # 0.8 10^3/uL (0.0-0.8); MONO % 11.5 % (2.0-8.0); NEUTROPHILS # 4.6 10^3/uL (1.5-8.5); NEUTROPHILS % 65.6 % (36.0-66.0); PLATELET COUNT, AUTOMATED 321 10^3/uL (150-450); RED BLOOD COUNT 3.01 10^6/uL (4.00-5.40); WHITE BLOOD COUNT 7.1 10^3/uL (4.0-10.0)
[2022-04-18 06:00] VITALS: BP 141/72
[2022-04-18] MEDS: INSULIN LISPRO (NovoLOG) PER UNIT SC SCH ×4 (07:30→20:34)
[2022-04-18] MEDS: BENZONATATE 100MG CAPSULE PO SCH ×3 (08:36→20:51)
[2022-04-18] MEDS: SERTRALINE 100 MG TAB PO SCH (08:36)
[2022-04-18] MEDS: PANTOPRAZOLE 40MG TAB (PROTONIX) PO SCH ×2 (08:36→20:51)
[2022-04-18] MEDS: FERROUS SULFATE 325MG TAB PO SCH (08:36)
[2022-04-18] MEDS: FUROSEMIDE 20 MG TAB PO SCH (08:36)
[2022-04-18 09:00] VITALS: O2SAT 90
[2022-04-18 14:00] VITALS: BP 126/60
[2022-04-18] MEDS: REMDESIVIR 100 MG in NS 250 ML IV SCH (18:13)
[2022-04-18 20:00] VITALS: BP 128/62
[2022-04-18] MEDS: SIMVASTATIN 20 MG TAB PO SCH (20:50)
[2022-04-18] MEDS: LEVEMIR (INSULIN DETEMIR) 1 UNITS/0.01ML SC SCH (20:51)
[2022-04-18] MEDS: ENOXAPARIN 30MG/0.3ML SYRINGE (J1650 PER 10MG) SC SCH (20:51)
[2022-04-18 23:49] VITALS: O2SAT 94
[2022-04-19] VITALS (7 sets, daily range): BP systolic 116–130; BP diastolic 52–62; O2SAT 92–94
[2022-04-19] MEDS: COMBIVENT RESPIMAT 100-20MCG INHALER 4GM INH SCH ×6 (03:03→23:13)
[2022-04-19 06:01] LABS: BASO % 0.2 % (0.0-1.0); HEMATOCRIT 28.1 % (36.0-47.0); HEMOGLOBIN 8.2 g/dl (12.0-15.5); LYMPH # 1.6 10^3/uL (1.5-5.0); LYMPH % 26.4 % (24.0-44.0); MEAN CORPUSCULAR HEMOGLOBIN 25.9 pg (27.0-33.0); MEAN CORPUSCULAR HGB CONC 29.2 g/dl (32.0-36.5); MEAN CORPUSCULAR VOLUME 88.6 fl (80.0-96.0); MONO # 0.8 10^3/uL (0.0-0.8); MONO % 13.2 % (2.0-8.0); NEUTROPHILS # 3.6 10^3/uL (1.5-8.5); NEUTROPHILS % 59.9 % (36.0-66.0); PLATELET COUNT, AUTOMATED 337 10^3/uL (150-450); RED BLOOD COUNT 3.17 10^6/uL (4.00-5.40); WHITE BLOOD COUNT 5.9 10^3/uL (4.0-10.0)
[2022-04-19] MEDS: INSULIN LISPRO (NovoLOG) PER UNIT SC SCH ×4 (07:30→22:07)
[2022-04-19] MEDS: BENZONATATE 100MG CAPSULE PO SCH ×3 (10:01→21:56)
[2022-04-19] MEDS: SERTRALINE 100 MG TAB PO SCH (10:02)
[2022-04-19] MEDS: PANTOPRAZOLE 40MG TAB (PROTONIX) PO SCH ×2 (10:02→21:56)
[2022-04-19] MEDS: FERROUS SULFATE 325MG TAB PO SCH (10:02)
[2022-04-19] MEDS: FUROSEMIDE 20 MG TAB PO SCH (10:03)
[2022-04-19] MEDS: REMDESIVIR 100 MG in NS 250 ML IV SCH (17:40)
[2022-04-19] MEDS: SIMVASTATIN 20 MG TAB PO SCH (21:56)
[2022-04-19] MEDS: ENOXAPARIN 30MG/0.3ML SYRINGE (J1650 PER 10MG) SC SCH (22:01)
[2022-04-19] MEDS: LEVEMIR (INSULIN DETEMIR) 1 UNITS/0.01ML SC SCH (22:08)
[2022-04-20] MEDS: COMBIVENT RESPIMAT 100-20MCG INHALER 4GM INH SCH ×3 (03:30→11:46)
[2022-04-20 06:00] VITALS: BP 131/65
[2022-04-20 06:05] LABS: BASO % 0.2 % (0.0-1.0); EOS % 0.2 % (0.0-3.0); HEMATOCRIT 28.6 % (36.0-47.0); HEMOGLOBIN 8.5 g/dl (12.0-15.5); LYMPH # 1.7 10^3/uL (1.5-5.0); LYMPH % 28.6 % (24.0-44.0); MEAN CORPUSCULAR HEMOGLOBIN 26.2 pg (27.0-33.0); MEAN CORPUSCULAR HGB CONC 29.7 g/dl (32.0-36.5); MONO # 0.6 10^3/uL (0.0-0.8); MONO % 9.9 % (2.0-8.0); NEUTROPHILS # 3.6 10^3/uL (1.5-8.5); NEUTROPHILS % 60.9 % (36.0-66.0); PLATELET COUNT, AUTOMATED 316 10^3/uL (150-450); RED BLOOD COUNT 3.25 10^6/uL (4.00-5.40); WHITE BLOOD COUNT 5.8 10^3/uL (4.0-10.0)
[2022-04-20 06:29] LABS: CALCIUM LEVEL 7.8 MG/DL (8.3-10.6); CREATININE FOR GFR 1.28 MG/DL (0.55-1.30); GLOMERULAR FILTRATION RATE 42.6 (>32); POTASSIUM SERUM 3.5 MMOL/L (3.5-5.1)
[2022-04-20] MEDS: BENZONATATE 100MG CAPSULE PO SCH (08:11)
[2022-04-20] MEDS: INSULIN LISPRO (NovoLOG) PER UNIT SC SCH ×2 (08:11→11:44)
[2022-04-20] MEDS: FUROSEMIDE 20 MG TAB PO SCH (08:12)
[2022-04-20] MEDS: SERTRALINE 100 MG TAB PO SCH (08:12)
[2022-04-20] MEDS: FERROUS SULFATE 325MG TAB PO SCH (08:12)
[2022-04-20] MEDS: PANTOPRAZOLE 40MG TAB (PROTONIX) PO SCH (08:12)
[2022-04-20 09:00] VITALS: O2SAT 95
[2022-04-20] MEDS ORDERED: DEXA6TAB PO (10:54)
[2022-04-20] MEDS: REMDESIVIR 100 MG in NS 250 ML IV SCH (11:14)
[2022-04-20 11:48] VITALS: O2SAT 96
== END 2022-04-20 13:15 | disposition home health service (06) | DRG 177 ==
LOC: M ED 10:14 → M ED INP 13:09 → INTOOBSV 13:09 → OBSVTOIN 13:09 → ENRESERV 15:46 → M MSPAV 16:35
PROVIDERS: ADMIT Internal Medicine; ATTEND Internal Medicine
DX: U07.1 COVID-19 (principal); J96.01 Acute respiratory failure with hypoxia; J84.9 Interstitial pulmonary disease, unspecified; J44.1 Chronic obstructive pulmonary disease with (acute) exacerbation; I13.0 Hypertensive heart and chronic kidney disease with heart failure and stage 1 through stage 4 chronic kidney disease, or unspecified chronic kidney disease; I50.32 Chronic diastolic (congestive) heart failure; J44.0 Chronic obstructive pulmonary disease with (acute) lower respiratory infection; N18.30 Chronic kidney disease, stage 3 unspecified; Z79.4 Long term (current) use of insulin; J20.8 Acute bronchitis due to other specified organisms; K21.9 Gastro-esophageal reflux disease without esophagitis; E78.5 Hyperlipidemia, unspecified; D50.9 Iron deficiency anemia, unspecified; E11.21 Type 2 diabetes mellitus with diabetic nephropathy; Z87.891 Personal history of nicotine dependence; Z91.041 Radiographic dye allergy status; Z88.8 Allergy status to other drugs, medicaments and biological substances; Z79.899 Other long term (current) drug therapy; F32.A Depression, unspecified; F41.9 Anxiety disorder, unspecified

== ENCOUNTER 2022-05-22 02:09 | Emergency (ER) | payer MEDICARE ==
[~2022-05-22] VITALS: Ht 154.9 cm; Wt 63.6 kg
[~2022-05-22 02:09] MED LIST changes: +DEXA6TAB PO; +PANT40TA29 PO; +SIMV20TA22 PO; +VENTAER INH
[2022-05-22] MEDS ORDERED: NS 500 ML IV ONE ×2 (02:40→07:05)
[2022-05-22 03:15] LABS: BASO # 0.1 10^3/uL (0.0-0.2); BASO % 0.5 % (0.0-1.0); EOS # 0.1 10^3/uL (0.0-0.5); EOS % 0.9 % (0.0-3.0); HEMATOCRIT 30.4 % (36.0-47.0); LYMPH # 1.4 10^3/uL (1.5-5.0); LYMPH % 11.1 % (24.0-44.0); MEAN CORPUSCULAR HEMOGLOBIN 24.6 pg (27.0-33.0); MEAN CORPUSCULAR HGB CONC 29.6 g/dl (32.0-36.5); MEAN CORPUSCULAR VOLUME 83.1 fl (80.0-96.0); MONO # 0.8 10^3/uL (0.0-0.8); MONO % 6.6 % (2.0-8.0); NEUTROPHILS # 10.1 10^3/uL (1.5-8.5); NEUTROPHILS % 80.5 % (36.0-66.0); PLATELET COUNT, AUTOMATED 340 10^3/uL (150-450); RED BLOOD COUNT 3.66 10^6/uL (4.00-5.40); WHITE BLOOD COUNT 12.6 10^3/uL (4.0-10.0)
[2022-05-22 03:40] LABS: ALBUMIN 3.3 G/DL (3.2-5.2); BILIRUBIN,TOTAL 0.3 MG/DL (0.3-1.2); CALCIUM LEVEL 8.1 MG/DL (8.3-10.6); CREATININE FOR GFR 1.18 MG/DL (0.55-1.30); GLOMERULAR FILTRATION RATE 46.8 (>32); POTASSIUM SERUM 3.8 MMOL/L (3.5-5.1); TOTAL PROTEIN 6.7 G/DL (5.7-8.2)
[2022-05-22 03:42] LABS: RSV AMPLIFICATION NEGATIVE (NEGATIVE)
[2022-05-22] MEDS ORDERED: FOSFOMYCIN TROMETHAMINE 3 GM POWDER PACKET (MONUROL) PO ONE (06:45)
[2022-05-22] MEDS ORDERED: TRAM50TA2 PO (07:04)
[2022-05-22] MEDS ORDERED: traMADol 50 MG TAB PO ONE (07:05)
[2022-05-22 08:59] VITALS: BP 185/82
== END 2022-05-22 09:08 | disposition home or self-care (01) ==
LOC: M ED 02:09 → EDBD 02:09 → M ED 09:08
DX: N39.0 Urinary tract infection, site not specified (principal); E11.9 Type 2 diabetes mellitus without complications; K21.9 Gastro-esophageal reflux disease without esophagitis; F32.A Depression, unspecified; J44.9 Chronic obstructive pulmonary disease, unspecified; E78.5 Hyperlipidemia, unspecified; Z79.84 Long term (current) use of oral hypoglycemic drugs; Z79.4 Long term (current) use of insulin; Z88.8 Allergy status to other drugs, medicaments and biological substances; Z91.041 Radiographic dye allergy status; Z79.51 Long term (current) use of inhaled steroids; Z79.899 Other long term (current) drug therapy

== ENCOUNTER → 2022-06-14 | Outpatient (CLI) | payer MEDICARE ==
[~2022-06-14] MED LIST changes: +PRES10CA2 PO; +TRAM50TA2 PO
== END ==
LOC: M LABSMTC 09:14
PROVIDERS: ATTEND Anesthesiology
DX: Z01.812 Encounter for preprocedural laboratory examination (principal); Z20.822 Contact with and (suspected) exposure to COVID-19

== ENCOUNTER 2022-07-03 18:12 | Inpatient (IN) | payer MEDICARE, MEDICAID ==
[~2022-07-03] VITALS: Ht 162.6 cm; Wt 64.4 kg
[2022-07-03 18:38] LABS: BASO # 0.1 10^3/uL (0.0-0.2); BASO % 0.7 % (0.0-1.0); EOS # 0.2 10^3/uL (0.0-0.5); EOS % 2.5 % (0.0-3.0); HEMATOCRIT 33.8 % (36.0-47.0); LYMPH # 1.8 10^3/uL (1.5-5.0); LYMPH % 24.3 % (24.0-44.0); MEAN CORPUSCULAR HEMOGLOBIN 24.4 pg (27.0-33.0); MEAN CORPUSCULAR HGB CONC 29.6 g/dl (32.0-36.5); MEAN CORPUSCULAR VOLUME 82.6 fl (80.0-96.0); MONO # 0.6 10^3/uL (0.0-0.8); MONO % 7.6 % (2.0-8.0); NEUTROPHILS # 4.7 10^3/uL (1.5-8.5); NEUTROPHILS % 64.8 % (36.0-66.0); PLATELET COUNT, AUTOMATED 239 10^3/uL (150-450); RED BLOOD COUNT 4.09 10^6/uL (4.00-5.40); WHITE BLOOD COUNT 7.3 10^3/uL (4.0-10.0)
[2022-07-03 19:11] LABS: LIPASE 54 U/L (12-53)
[2022-07-03 19:13] LABS: ALBUMIN 3.7 G/DL (3.2-5.2); ALKALINE PHOSPHATASE 185 U/L (46-116); ALT/SGPT 46 U/L (7.0-40); AST/SGOT 155 U/L (<34); BILIRUBIN,DIRECT 0.1 MG/DL (<0.4); BILIRUBIN,TOTAL 0.3 MG/DL (0.3-1.2); BLOOD UREA NITROGEN 20 MG/DL (9-23); CALCIUM LEVEL 8.6 MG/DL (8.3-10.6); CARBON DIOXIDE LEVEL 26 MMOL/L (20-31); CHLORIDE LEVEL 108 MMOL/L (98-107); CREATININE FOR GFR 1.22 MG/DL (0.55-1.30); GLOMERULAR FILTRATION RATE 44.9 (>32); GLUCOSE, FASTING 134 MG/DL (74-106); POTASSIUM SERUM 3.7 MMOL/L (3.5-5.1); SODIUM LEVEL 142 MMOL/L (136-145); TOTAL PROTEIN 7.1 G/DL (5.7-8.2)
[2022-07-03 19:26] LABS: CK-MB VALUE MASS < 1.0 NG/ML (<3.6)
[2022-07-03 19:27] LABS: CPK CREATINE PHOSPHOKINASE 43 U/L (34-145); MB/CK RELATIVE INDEX 2.32 (< OR =4)
[2022-07-03 20:14] LABS: CK-MB VALUE MASS < 1.0 NG/ML (<3.6)
[2022-07-03 20:21] LABS: CPK CREATINE PHOSPHOKINASE 50 U/L (34-145)
[2022-07-03] MEDS: LEVEMIR (INSULIN DETEMIR) 1 UNITS/0.01ML SC SCH (21:00)
[2022-07-03] MEDS ORDERED: ALBU2.5V10 INH (22:45)
[2022-07-03] MEDS ORDERED: FAMO40TA3 PO (22:45)
[2022-07-03] MEDS ORDERED: DOCU100C16 PO (22:45)
[2022-07-03] MEDS ORDERED: HOME MED LIST COMPLETE! XX SCH (22:50)
[2022-07-03 23:07] LABS: RSV AMPLIFICATION NEGATIVE (NEGATIVE)
[2022-07-03] MEDS ORDERED: DEXTROSE 50% 50ML SYRINGE IV PRN (23:25)
[2022-07-03] MEDS ORDERED: GLUCOSE 4GM CHEW TABLET PO PRN (23:25)
[2022-07-03] MEDS ORDERED: ALBUTEROL 90 MCG/ACT 8GM HFA INHALER INH PRN (23:25)
[2022-07-03] MEDS ORDERED: GLUCAGON INJ 1MG VIAL SC PRN (23:25)
[2022-07-03] MEDS ORDERED: NS 1,000 ML IV SCH (23:25)
[2022-07-03] MEDS ORDERED: HYDROMORPHONE HCL 0.5 MG/ 0.5 ML SYRINGE IV PRN (23:25)
[2022-07-04] MEDS ORDERED: amLODIPine 5 MG TAB PO ONE
[2022-07-04 01:10] VITALS: BP 178/82
[2022-07-04 01:48] VITALS: BP 178/82
[2022-07-04] MEDS ORDERED: RAMELTEON 8 MG TAB (ROZEREM) PO ONE (02:00)
[2022-07-04] MEDS ORDERED: **hydrALAZINE** 10 MG TAB PO ONE (02:00)
[2022-07-04] MEDS ORDERED: INSULIN LISPRO (NovoLOG) PER UNIT SC SCH ×4 (06:00→21:00)
[2022-07-04 06:27] VITALS: BP 145/71
[2022-07-04 06:55] LABS: ALBUMIN 3.3 G/DL (3.2-5.2); BILIRUBIN,TOTAL 0.3 MG/DL (0.3-1.2); CALCIUM LEVEL 8.6 MG/DL (8.3-10.6); CREATININE FOR GFR 1.2 MG/DL (0.55-1.30); GLOMERULAR FILTRATION RATE 45.8 (>32); POTASSIUM SERUM 3.5 MMOL/L (3.5-5.1); TOTAL PROTEIN 6.4 G/DL (5.7-8.2)
[2022-07-04] MEDS: FERROUS SULFATE 325MG TAB PO SCH ×2 (09:00→10:18)
[2022-07-04] MEDS: DOCUSATE SODIUM 100MG CAPSULE PO SCH ×3 (09:00→21:00)
[2022-07-04] MEDS: SIMVASTATIN 20 MG TAB PO SCH (10:18)
[2022-07-04] MEDS: FAMOTIDINE 20 MG TAB PO SCH (10:19)
[2022-07-04] MEDS: HEPARIN SOD (PORCINE) 5000UNITS/ML 1ML VIAL/SYRINGE SC SCH ×2 (10:19→21:37)
[2022-07-04] MEDS: SERTRALINE 100 MG TAB PO SCH (10:19)
[2022-07-04 10:46] LABS: ABG pH (ARTERIAL) 7.418 UNITS (7.350-7.450)
[2022-07-04 10:47] LABS: ABG BASE EXCESS 0.2 (-2.0-2.0); ABG HCO3 24.7 MEQ/L (22.0-26.0); ABG O2 SATURATION 96.2 % (95.0-99.0); ABG PARTIAL PRESSURE CO2 39.1 mmHg (35.0-45.0); ABG PARTIAL PRESSURE O2 82.3 mmHg (75.0-100.0); ABG STANDARD HCO3 24.7 MEQ/L (22.0-26.0); ABG TOTAL CO2 25.9 MEQ/L (23.0-31.0)
[2022-07-04] MEDS ORDERED: IPRATROPIUM 0.5MG/ALBUTEROL 2.5MG INH SOL UD 3ML (DUONEB) NEB PRN (11:10)
[2022-07-04] MEDS ORDERED: PIPERACILLIN/TAZOBACTAM SOD 3.375 GM in D5W MINI-BAG PLUS 50 ML IV SCH (12:00)
[2022-07-04] MEDS: INSULIN LISPRO (NovoLOG) PER UNIT SC SCH ×2 (12:12→18:32)
[2022-07-04] MEDS ORDERED: ACETAMINOPHEN TAB 650MG DOSE (2X325MG) PO PRN (13:10)
[2022-07-04] MEDS: PIPERACILLIN/TAZOBACTAM SOD 2.25 GM in D5W MINI-BAG PLUS 50 ML IV SCH (18:32)
[2022-07-04] MEDS: SYMBICORT 80/4.5MCG INHALER 6GM INH SCH (20:55)
[2022-07-04] MEDS: LEVEMIR (INSULIN DETEMIR) 1 UNITS/0.01ML SC SCH (21:00)
[2022-07-04 21:06] VITALS: BP 112/63
[2022-07-05] MEDS: PIPERACILLIN/TAZOBACTAM SOD 2.25 GM in D5W MINI-BAG PLUS 50 ML IV SCH ×4 (00:13→18:05)
[2022-07-05] MEDS: INSULIN LISPRO (NovoLOG) PER UNIT SC SCH ×4 (00:14→17:30)
[2022-07-05 07:33] LABS: BASO % 0.7 % (0.0-1.0); EOS # 0.4 10^3/uL (0.0-0.5); EOS % 6.3 % (0.0-3.0); HEMATOCRIT 30.7 % (36.0-47.0); HEMOGLOBIN 8.8 g/dl (12.0-15.5); LYMPH # 0.9 10^3/uL (1.5-5.0); LYMPH % 16.1 % (24.0-44.0); MEAN CORPUSCULAR HGB CONC 28.7 g/dl (32.0-36.5); MEAN CORPUSCULAR VOLUME 83.7 fl (80.0-96.0); MONO # 0.6 10^3/uL (0.0-0.8); NEUTROPHILS # 3.7 10^3/uL (1.5-8.5); NEUTROPHILS % 66.5 % (36.0-66.0); PLATELET COUNT, AUTOMATED 193 10^3/uL (150-450); RED BLOOD COUNT 3.67 10^6/uL (4.00-5.40); WHITE BLOOD COUNT 5.6 10^3/uL (4.0-10.0)
[2022-07-05] MEDS: SYMBICORT 80/4.5MCG INHALER 6GM INH SCH ×2 (07:41→20:39)
[2022-07-05 08:01] LABS: BILIRUBIN,TOTAL 0.5 MG/DL (0.3-1.2); CALCIUM LEVEL 8.5 MG/DL (8.3-10.6); CREATININE FOR GFR 1.35 MG/DL (0.55-1.30); MAGNESIUM LEVEL 1.9 MG/DL (1.8-2.4); POTASSIUM SERUM 3.7 MMOL/L (3.5-5.1)
[2022-07-05] MEDS: HEPARIN SOD (PORCINE) 5000UNITS/ML 1ML VIAL/SYRINGE SC SCH ×2 (08:41→21:34)
[2022-07-05] MEDS: FERROUS SULFATE 325MG TAB PO SCH (08:48)
[2022-07-05] MEDS: DOCUSATE SODIUM 100MG CAPSULE PO SCH ×2 (08:48→21:00)
[2022-07-05] MEDS: SERTRALINE 100 MG TAB PO SCH (08:50)
[2022-07-05] MEDS: SIMVASTATIN 20 MG TAB PO SCH (08:50)
[2022-07-05] MEDS: FAMOTIDINE 20 MG TAB PO SCH (08:50)
[2022-07-05] MEDS: NS 1,000 ML IV SCH (10:23)
[2022-07-05] MEDS ORDERED: ISOVUE-300 61% 100ML VIAL As Ordered ONE (14:52)
[2022-07-05] MEDS ORDERED: ACETAMINOPHEN 1000MG 100ML IV BAG As Ordered ONE (15:03)
[2022-07-05] MEDS ORDERED: SUGAMMADEX SODIUM 500 MG/5 ML VIAL (BRIDION) As Ordered ONE (15:03)
[2022-07-05] MEDS ORDERED: LIDOCAINE 2% 100MG/5ML SDV (FOR ANES.) As Ordered ONE (15:03)
[2022-07-05] MEDS ORDERED: ROCURONIUM BROMIDE 50MG/5ML VIAL As Ordered ONE (15:03)
[2022-07-05] MEDS ORDERED: propofoL 200 MG/20 ML VIAL As Ordered ONE (15:03)
[2022-07-05] MEDS ORDERED: fentaNYL 100 MCG/2 ML INJECTION As Ordered ONE (15:04)
[2022-07-05] MEDS ORDERED: LR 1,000 ML IV SCH (16:30)
[2022-07-05] MEDS ORDERED: oxyCODONE 5MG TAB PO PRN (16:30)
[2022-07-05] MEDS ORDERED: HYDROMORPHONE HCL 0.5 MG/ 0.5 ML SYRINGE IV PRN (16:30)
[2022-07-05] MEDS ORDERED: fentaNYL 100 MCG/2 ML INJECTION IV PRN (16:30)
[2022-07-05] MEDS ORDERED: ONDANSETRON 4MG 2ML VIAL IV PRN (16:30)
[2022-07-05] MEDS ORDERED: DEXTROSE 50% 50ML SYRINGE IV PRN (17:05)
[2022-07-05] MEDS ORDERED: GLUCAGON INJ 1MG VIAL SC PRN (17:05)
[2022-07-05] MEDS ORDERED: GLUCOSE 4GM CHEW TABLET PO PRN (17:05)
[2022-07-05 17:15] VITALS: BP 146/65
[2022-07-05 17:45] VITALS: BP 142/65
[2022-07-05 18:45] VITALS: BP 144/65
[2022-07-05] MEDS ORDERED: INSULIN LISPRO (NovoLOG) PER UNIT SC SCH (21:00)
[2022-07-05] MEDS: LEVEMIR (INSULIN DETEMIR) 1 UNITS/0.01ML SC SCH (21:00)
[2022-07-05 21:41] VITALS: BP 135/66
[2022-07-05 22:42] VITALS: BP 135/53
[2022-07-05 23:37] VITALS: BP 131/53
[2022-07-06 02:20] VITALS: BP 133/52
[2022-07-06] MEDS: PIPERACILLIN/TAZOBACTAM SOD 2.25 GM in D5W MINI-BAG PLUS 50 ML IV SCH ×4 (05:09→12:30)
[2022-07-06] MEDS: NS 1,000 ML IV SCH ×2 (05:09→10:20)
[2022-07-06 05:30] VITALS: BP 124/48
[2022-07-06 06:33] LABS: BASO % 0.8 % (0.0-1.0); EOS % 0.6 % (0.0-3.0); HEMATOCRIT 29.6 % (36.0-47.0); HEMOGLOBIN 8.6 g/dl (12.0-15.5); LYMPH % 20.2 % (24.0-44.0); MEAN CORPUSCULAR HEMOGLOBIN 24.1 pg (27.0-33.0); MEAN CORPUSCULAR HGB CONC 29.1 g/dl (32.0-36.5); MEAN CORPUSCULAR VOLUME 82.9 fl (80.0-96.0); MONO # 0.5 10^3/uL (0.0-0.8); MONO % 9.5 % (2.0-8.0); NEUTROPHILS # 3.4 10^3/uL (1.5-8.5); NEUTROPHILS % 68.3 % (36.0-66.0); PLATELET COUNT, AUTOMATED 184 10^3/uL (150-450); RED BLOOD COUNT 3.57 10^6/uL (4.00-5.40); WHITE BLOOD COUNT 4.9 10^3/uL (4.0-10.0)
[2022-07-06 06:55] LABS: ALBUMIN 2.9 G/DL (3.2-5.2); BILIRUBIN,TOTAL 0.3 MG/DL (0.3-1.2); CALCIUM LEVEL 8.6 MG/DL (8.3-10.6); CREATININE FOR GFR 1.24 MG/DL (0.55-1.30); GLOMERULAR FILTRATION RATE 44.1 (>32); MAGNESIUM LEVEL 1.7 MG/DL (1.8-2.4); POTASSIUM SERUM 4.1 MMOL/L (3.5-5.1)
[2022-07-06] MEDS ORDERED: MAG SULF 1GM/100ML (MAG RUN) 1 GM in IV 1 EA IV ONE (07:55)
[2022-07-06 08:00] VITALS: BP 141/84
[2022-07-06] MEDS: SYMBICORT 80/4.5MCG INHALER 6GM INH SCH (08:03)
[2022-07-06] MEDS: INSULIN LISPRO (NovoLOG) PER UNIT SC SCH ×2 (08:30→12:30)
[2022-07-06] MEDS: SIMVASTATIN 20 MG TAB PO SCH (09:07)
[2022-07-06] MEDS: FAMOTIDINE 20 MG TAB PO SCH (09:07)
[2022-07-06] MEDS: SERTRALINE 100 MG TAB PO SCH (09:07)
[2022-07-06] MEDS: DOCUSATE SODIUM 100MG CAPSULE PO SCH (09:07)
[2022-07-06] MEDS: FERROUS SULFATE 325MG TAB PO SCH (09:07)
[2022-07-06] MEDS: HEPARIN SOD (PORCINE) 5000UNITS/ML 1ML VIAL/SYRINGE SC SCH (09:09)
[2022-07-06 14:00] VITALS: BP 127/56
== END 2022-07-06 15:15 | disposition home or self-care (01) | DRG 445 ==
LOC: M ED 18:12 → EDBD 18:12 → UNDOADMIN 19:37 → M ED INP 19:37 → ENRESERV 07-04 00:04 → M MS5PR 07-04 01:10
PROVIDERS: ADMIT Internal Medicine; ATTEND Internal Medicine
PROC: BF141ZZ Fluoroscopy of Gallbladder, Bile Ducts and Pancreatic Ducts using Low Osmolar Contrast (ICD-10-PCS; 2022-07-05)
PROC: 0FPB8DZ Removal of Intraluminal Device from Hepatobiliary Duct, Via Natural or Artificial Opening Endoscopic (ICD-10-PCS; 2022-07-05)
PROC: 0FH Hepatobiliary System and Pancreas, Insertion (ICD-10-PCS; 2022-07-05)
PROC: 0FC98ZZ Extirpation of Matter from Common Bile Duct, Via Natural or Artificial Opening Endoscopic (ICD-10-PCS; principal; 2022-07-05 15:00)
DX: K80.50 Calculus of bile duct without cholangitis or cholecystitis without obstruction (principal); J84.9 Interstitial pulmonary disease, unspecified; J96.11 Chronic respiratory failure with hypoxia; T85.520A Displacement of bile duct prosthesis, initial encounter; K21.9 Gastro-esophageal reflux disease without esophagitis; J84.10 Pulmonary fibrosis, unspecified; I12.9 Hypertensive chronic kidney disease with stage 1 through stage 4 chronic kidney disease, or unspecified chronic kidney disease; E11.22 Type 2 diabetes mellitus with diabetic chronic kidney disease; N18.30 Chronic kidney disease, stage 3 unspecified; Z79.4 Long term (current) use of insulin; F41.9 Anxiety disorder, unspecified; F32.A Depression, unspecified; Z99.81 Dependence on supplemental oxygen; E78.5 Hyperlipidemia, unspecified; Z88.8 Allergy status to other drugs, medicaments and biological substances; Z79.899 Other long term (current) drug therapy; Z91.041 Radiographic dye allergy status

== ENCOUNTER → 2022-07-20 | Outpatient (CLI) | payer MEDICARE, MEDICAID ==
[~2022-07-20] MED LIST changes: +ALBU2.5V10 INH; +DOCU100C16 PO; +FAMO40TA3 PO
[2022-07-20 13:04] LABS: BASO # 0.1 10^3/uL (0.0-0.2); BASO % 0.9 % (0.0-1.0); EOS # 0.4 10^3/uL (0.0-0.5); EOS % 4.1 % (0.0-3.0); HEMATOCRIT 35.8 % (36.0-47.0); HEMOGLOBIN 10.4 g/dl (12.0-15.5); LYMPH # 1.7 10^3/uL (1.5-5.0); MEAN CORPUSCULAR HEMOGLOBIN 24.9 pg (27.0-33.0); MEAN CORPUSCULAR HGB CONC 29.1 g/dl (32.0-36.5); MEAN CORPUSCULAR VOLUME 85.6 fl (80.0-96.0); MONO # 0.6 10^3/uL (0.0-0.8); MONO % 6.8 % (2.0-8.0); NEUTROPHILS # 6.2 10^3/uL (1.5-8.5); NEUTROPHILS % 68.9 % (36.0-66.0); PLATELET COUNT, AUTOMATED 326 10^3/uL (150-450); RED BLOOD COUNT 4.18 10^6/uL (4.00-5.40)
[2022-07-20 13:35] LABS: ALBUMIN 3.7 G/DL (3.2-5.2); BILIRUBIN,TOTAL 0.3 MG/DL (0.3-1.2); CALCIUM LEVEL 9.3 MG/DL (8.3-10.6); CREATININE FOR GFR 1.23 MG/DL (0.55-1.30); GLOMERULAR FILTRATION RATE 44.5 (>32); POTASSIUM SERUM 4.7 MMOL/L (3.5-5.1); TOTAL PROTEIN 7.3 G/DL (5.7-8.2)
== END ==
LOC: M WUC 10:20
PROVIDERS: ATTEND Family Medicine
DX: K80.30 Calculus of bile duct with cholangitis, unspecified, without obstruction (principal)

== ENCOUNTER → 2022-09-09 | Outpatient (CLI) | payer MEDICARE, MEDICAID ==
[2022-09-09 16:26] LABS: BASO # 0.1 10^3/uL (0.0-0.2); BASO % 0.9 % (0.0-1.0); EOS # 0.3 10^3/uL (0.0-0.5); EOS % 2.9 % (0.0-3.0); HEMATOCRIT 33.8 % (36.0-47.0); LYMPH # 1.5 10^3/uL (1.5-5.0); LYMPH % 15.4 % (24.0-44.0); MEAN CORPUSCULAR HEMOGLOBIN 25.3 pg (27.0-33.0); MEAN CORPUSCULAR HGB CONC 29.6 g/dl (32.0-36.5); MEAN CORPUSCULAR VOLUME 85.6 fl (80.0-96.0); MONO # 0.7 10^3/uL (0.0-0.8); NEUTROPHILS # 7.3 10^3/uL (1.5-8.5); NEUTROPHILS % 73.3 % (36.0-66.0); PLATELET COUNT, AUTOMATED 420 10^3/uL (150-450); RED BLOOD COUNT 3.95 10^6/uL (4.00-5.40); WHITE BLOOD COUNT 9.9 10^3/uL (4.0-10.0)
[2022-09-09 16:28] LABS: ALBUMIN 3.4 G/DL (3.2-5.2); ALKALINE PHOSPHATASE 111 U/L (46-116); ALT/SGPT < 9 U/L (7.0-40); AST/SGOT 11 U/L (<34); BILIRUBIN,TOTAL 0.3 MG/DL (0.3-1.2); BLOOD UREA NITROGEN 18 MG/DL (9-23); CALCIUM LEVEL 8.3 MG/DL (8.3-10.6); CARBON DIOXIDE LEVEL 26 MMOL/L (20-31); CHLORIDE LEVEL 104 MMOL/L (98-107); GLOMERULAR FILTRATION RATE 41.7 (>32); GLUCOSE, FASTING 124 MG/DL (74-106); POTASSIUM SERUM 3.8 MMOL/L (3.5-5.1); SODIUM LEVEL 140 MMOL/L (136-145); TOTAL PROTEIN 7.3 G/DL (5.7-8.2)
[2022-09-09 16:31] LABS: THYROID STIMULATING HORMONE 4.222 uIU/ML (0.55-4.78)
[2022-09-09 16:32] LABS: FREE T3 3.2 PG/ML (2.3-4.2)
[2022-09-09 16:33] LABS: FREE T4 0.91 NG/DL (0.89-1.76)
[2022-09-09 18:48] LABS: HEMOGLOBIN A1c 6.2 % (4.0-6.0)
== END ==
LOC: M WUC 11:18
PROVIDERS: ATTEND Family Medicine
DX: E07.9 Disorder of thyroid, unspecified (principal); E11.9 Type 2 diabetes mellitus without complications

== ENCOUNTER → 2022-09-14 | Outpatient (CLI) | payer MEDICARE, MEDICAID | LOC: M CARPUL 08:19 | PROVIDERS: ATTEND Internal Medicine Critical Care Medicine | DX: R06.00 Dyspnea, unspecified (principal) ==

== ENCOUNTER → 2022-10-26 | Outpatient (CLI) | payer MEDICARE, MEDICAID ==
[2022-10-26 17:43] LABS: HEMATOCRIT 38.9 % (36.0-47.0); HEMOGLOBIN 11.7 g/dl (12.0-15.5); MEAN CORPUSCULAR HEMOGLOBIN 27.5 pg (27.0-33.0); MEAN CORPUSCULAR HGB CONC 30.1 g/dl (32.0-36.5); MEAN CORPUSCULAR VOLUME 91.3 fl (80.0-96.0); PLATELET COUNT, AUTOMATED 229 10^3/uL (150-450); RED BLOOD COUNT 4.26 10^6/uL (4.00-5.40); WHITE BLOOD COUNT 8.1 10^3/uL (4.0-10.0)
[2022-10-26 18:14] LABS: CREATININE FOR GFR 1.12 MG/DL (0.55-1.30); GLOMERULAR FILTRATION RATE 49.6 (>32); PERCENT SATURATION 15.5 % (13.2-45.0)
[2022-10-26 18:16] LABS: FERRITIN 23.1 NG/ML (7.3-270.7)
[2022-10-26 18:17] LABS: FOLATE 16.61 NG/ML (>5.4)
== END ==
LOC: M WUC 09:52
PROVIDERS: ATTEND Internal Medicine Gastroenterology
DX: D64.9 Anemia, unspecified (principal); J84.10 Pulmonary fibrosis, unspecified

== ENCOUNTER → 2022-10-26 | Outpatient (CLI) | payer MEDICARE, MEDICAID ==
[2022-10-26 18:14] LABS: C REACTIVE PROTEIN QUANTITATIV < 0.40 MG/DL (<1.0)
[2022-10-26 18:15] LABS: RHEUMATOID FACTOR QUANT 15.8 IU/ML (<14)
[2022-11-03 14:10] LABS: ANA (HEP2) Positive (.); ANCA-ATYPICAL <1:20 titer (Neg:<1:20); ANGIOTENSIN 1 CONVERTING ENZYM 64 U/L (14-82); ANTINUCLEAR ANTIBODIES DIRECT Negative (Negative); ASPERGILLUS FUMIGATUS AB Negative (Negative); AUREOBASIDIUM PULLULANS Negative (Negative); CYCLIC CITRULLINATED PEPTIDE 9 units (0-19); CYTOPLASMIC NEUTROP AB ANCA-C <1:20 titer (Neg:<1:20); MICROPOLYSPORA FAENI AB Negative (Negative); PERINUCLEAR AB ANCA-P <1:20 titer (Neg:<1:20); PIGEON SERUM AB Negative (Negative); SJOGREN'S ANTI SS-A <0.2 AI (0.0-0.9); SJOGREN'S ANTI SS-B <0.2 AI (0.0-0.9); THERMOACTINOMYCES SACCHARI Negative (Negative); THERMOACTINOMYCES VULGARIS Negative (Negative)
== END ==
LOC: M WUC 09:44
PROVIDERS: ATTEND Internal Medicine Critical Care Medicine
DX: J84.10 Pulmonary fibrosis, unspecified (principal)

== ENCOUNTER → 2023-06-06 | Outpatient (REF) | payer MEDICARE, MEDICAID ==
[~2023-06-06] MED LIST changes: +CEFD1CAP9 PO; -CEFD300C41 PO
[2023-06-06 17:08] LABS: APPEARANCE, URINE CLEAR (CLEAR); BACTERIA, URINE AUTO NEGATIVE (NEGATIVE); BILIRUBIN, URINE AUTO NEGATIVE (NEGATIVE); BLOOD, URINE BLOOD NEGATIVE (NEGATIVE); COLOR, URINE YELLOW (YELLOW); GLUCOSE, URINE (UA) AUTO NEGATIVE (NEGATIVE); KETONE, URINE AUTO NEGATIVE (NEGATIVE); LEUKOCYTE ESTERASE, URINE AUTO 1+ (NEGATIVE); MUCUS, URINE SMALL (NEGATIVE); NITRITE, URINE AUTO NEGATIVE (NEGATIVE); PROTEIN, URINE AUTO 1+ mg/dL (NEGATIVE); RBC, URINE AUTO 2 /HPF (0-3); SPECIFIC GRAVITY URINE AUTO 1.021 (1.002-1.035); SQUAMOUS EPITHELIAL CELL UR AU 0 /HPF (0-6); WBC, URINE AUTO 17 /HPF (0-3)
[2023-06-06 17:34] LABS: BASO # 0.1 10^3/uL (0.0-0.2); BASO % 0.8 % (0.0-1.0); EOS # 0.2 10^3/uL (0.0-0.5); HEMOGLOBIN 13.2 g/dl (12.0-15.5); LYMPH # 2.1 10^3/uL (1.5-5.0); LYMPH % 22.1 % (24.0-44.0); MEAN CORPUSCULAR HEMOGLOBIN 31.7 pg (27.0-33.0); MEAN CORPUSCULAR HGB CONC 33.8 g/dl (32.0-36.5); MEAN CORPUSCULAR VOLUME 93.5 fl (80.0-96.0); MONO # 0.7 10^3/uL (0.0-0.8); MONO % 6.8 % (2.0-8.0); NEUTROPHILS # 6.5 10^3/uL (1.5-8.5); PLATELET COUNT, AUTOMATED 246 10^3/uL (150-450); RED BLOOD COUNT 4.17 10^6/uL (4.00-5.40); WHITE BLOOD COUNT 9.5 10^3/uL (4.0-10.0)
[2023-06-06 17:40] LABS: ERYTHROCYTE SEDIMENTATION RATE 39 mm/hr (0-30); TOTAL PROTEIN,RANDOM URINE 37.4 MG/DL (0.0-14.0)
[2023-06-06 17:45] LABS: CREATININE,RANDOM URINE 175.6 MG/DL
[2023-06-06 17:58] LABS: C REACTIVE PROTEIN QUANTITATIV < 0.40 MG/DL (<1.0); IMMUNOGLOBULIN A 448.6 MG/DL (40-350)
[2023-06-06 17:59] LABS: ALKALINE PHOSPHATASE 71 U/L (46-116); ALT/SGPT 9 U/L (7.0-40); AST/SGOT 12 U/L (<34); BILIRUBIN,DIRECT 0.1 MG/DL (<0.4); BILIRUBIN,TOTAL 0.4 MG/DL (0.3-1.2); BLOOD UREA NITROGEN 21 MG/DL (9-23); CALCIUM LEVEL 8.5 MG/DL (8.3-10.6); CARBON DIOXIDE LEVEL 30 MMOL/L (20-31); CHLORIDE LEVEL 99 MMOL/L (98-107); COMPLEMENT C4 22.7 MG/DL (12-36); CREATININE FOR GFR 1.15 MG/DL (0.55-1.30); GLOMERULAR FILTRATION RATE 48.1 (>32); GLUCOSE, FASTING 113 MG/DL (74-106); IMMUNOGLOBULIN G 747 MG/DL (650-1600); SODIUM LEVEL 139 MMOL/L (136-145); TOTAL PROTEIN 7.4 G/DL (5.7-8.2)
[2023-06-06 18:17] LABS: HEPATITIS B SURFACE ANTIBODY NEGATIVE (POSITIVE)
[2023-06-06 18:40] LABS: HEPATITIS C VIRUS ABY INDEX 0.03 INDEX (<0.8)
== END ==
LOC: M SFHCRHEU 15:10
PROVIDERS: ATTEND Internal Medicine
DX: R76.8 Other specified abnormal immunological findings in serum (principal); J84.9 Interstitial pulmonary disease, unspecified; Z11.59 Encounter for screening for other viral diseases

== ENCOUNTER → 2023-07-06 | Outpatient (CLI) | payer MEDICARE, MEDICAID | LOC: M WUC 10:40 | PROVIDERS: ATTEND Internal Medicine | DX: M77.32 Calcaneal spur, left foot (principal); M77.31 Calcaneal spur, right foot ==

== ENCOUNTER → 2023-07-15 | Outpatient (REF) | payer MEDICARE, MEDICAID ==
[2023-07-15 18:00] LABS: APPEARANCE, URINE HAZY (CLEAR); BACTERIA, URINE AUTO NEGATIVE (NEGATIVE); BILIRUBIN, URINE AUTO NEGATIVE (NEGATIVE); BLOOD, URINE BLOOD NEGATIVE (NEGATIVE); CALCIUM OXALATE CRYSTALS LARGE; COLOR, URINE YELLOW (YELLOW); GLUCOSE, URINE (UA) AUTO NEGATIVE (NEGATIVE); KETONE, URINE AUTO NEGATIVE (NEGATIVE); LEUKOCYTE ESTERASE, URINE AUTO 1+ (NEGATIVE); MUCUS, URINE SMALL (NEGATIVE); NITRITE, URINE AUTO NEGATIVE (NEGATIVE); PROTEIN, URINE AUTO 1+ mg/dL (NEGATIVE); RBC, URINE AUTO 3 /HPF (0-3); SPECIFIC GRAVITY URINE AUTO 1.019 (1.002-1.035); SQUAMOUS EPITHELIAL CELL UR AU 0 /HPF (0-6); UROBILINOGEN, URINE AUTO 0.2 mg/dL (0.0-2.0); WBC, URINE AUTO 13 /HPF (0-3)
== END ==
LOC: M SFHCRHEU 13:28
PROVIDERS: ATTEND Internal Medicine
DX: R82.998 Other abnormal findings in urine (principal)

== ENCOUNTER → 2023-08-01 | Outpatient (CLI) | payer MEDICAID, MEDICARE ==
[~2023-08-01] MED LIST changes: +DOXY-440 PO; -DOXY-444 PO
== END ==
LOC: M CARPUL 08:11
PROVIDERS: ATTEND Internal Medicine Critical Care Medicine
DX: I27.20 Pulmonary hypertension, unspecified (principal); I08.1 Rheumatic disorders of both mitral and tricuspid valves

== ENCOUNTER → 2023-12-13 | Outpatient (CLI) | payer MEDICARE, MEDICAID ==
[2023-12-13 15:28] LABS: THYROID STIMULATING HORMONE 6.782 uIU/ML (0.55-4.78)
[2023-12-13 15:42] LABS: CALCIUM LEVEL 9.4 MG/DL (8.3-10.6); CHOLESTEROL RISK RATIO 3.04 (<5); CREATININE FOR GFR 1.26 MG/DL (0.55-1.30); GLOMERULAR FILTRATION RATE 43.2 (>32); HDL CHOLESTEROL 55.8 MG/DL (>40); LDL CHOLESTEROL 81.4 MG/DL (<100); NON-HDL-C 114.2 MG/DL; POTASSIUM SERUM 2.9 MMOL/L (3.5-5.1)
[2023-12-13 17:58] LABS: CREATININE, URINE 153.3 MG/DL; MAU/CREAT RATIO 3.2 MCG/MG (0.0-30.0)
== END ==
LOC: M WUC 10:25
PROVIDERS: ATTEND Family Medicine
DX: E11.9 Type 2 diabetes mellitus without complications (principal); E07.9 Disorder of thyroid, unspecified

== ENCOUNTER → 2023-12-16 | Outpatient (CLI) | payer MEDICARE, MEDICAID ==
[2023-12-16 13:35] LABS: CALCIUM LEVEL 9.3 MG/DL (8.3-10.6); CREATININE FOR GFR 1.34 MG/DL (0.55-1.30); GLOMERULAR FILTRATION RATE 40.2 (>32); MAGNESIUM LEVEL 1.8 MG/DL (1.8-2.4); POTASSIUM SERUM 4.1 MMOL/L (3.5-5.1)
== END ==
LOC: M WUC 10:21
PROVIDERS: ATTEND Family Medicine
DX: E87.6 Hypokalemia (principal); R06.00 Dyspnea, unspecified; I70.0 Atherosclerosis of aorta; R91.8 Other nonspecific abnormal finding of lung field

== ENCOUNTER → 2023-12-16 | Outpatient (CLI) | payer MEDICARE, MEDICAID | LOC: M WUC 10:39 | PROVIDERS: ATTEND Internal Medicine Critical Care Medicine | DX: R06.00 Dyspnea, unspecified (principal); I70.0 Atherosclerosis of aorta; R91.8 Other nonspecific abnormal finding of lung field; E87.6 Hypokalemia ==

== ENCOUNTER → 2024-05-30 | Outpatient (CLI) | payer MEDICARE, MEDICAID ==
[2024-05-30 13:02] LABS: CALCIUM LEVEL 9.2 MG/DL (8.3-10.6); CREATININE FOR GFR 1.38 MG/DL (0.55-1.30); GLOMERULAR FILTRATION RATE 38.9 (>32); MAGNESIUM LEVEL 1.9 MG/DL (1.8-2.4)
== END ==
LOC: M WUC 10:26
PROVIDERS: ATTEND Family Medicine
DX: E87.6 Hypokalemia (principal)

== ENCOUNTER 2024-08-01 13:15 | Emergency (ER) | payer MEDICAID, MEDICARE ==
[~2024-08-01] VITALS: Ht 165.1 cm; Wt 73.6 kg
[2024-08-01 13:54] LABS: BASO # 0.1 10^3/uL (0.0-0.2); BASO % 0.6 % (0.0-1.0); EOS # 0.1 10^3/uL (0.0-0.5); EOS % 1.1 % (0.0-3.0); HEMATOCRIT 41.5 % (36.0-47.0); HEMOGLOBIN 13.8 g/dl (12.0-15.5); LYMPH # 1.5 10^3/uL (1.5-5.0); LYMPH % 15.7 % (24.0-44.0); MEAN CORPUSCULAR HEMOGLOBIN 31.1 pg (27.0-33.0); MEAN CORPUSCULAR HGB CONC 33.3 g/dl (32.0-36.5); MEAN CORPUSCULAR VOLUME 93.5 fl (80.0-96.0); MONO # 0.7 10^3/uL (0.0-0.8); MONO % 6.8 % (2.0-8.0); NEUTROPHILS # 7.2 10^3/uL (1.5-8.5); NEUTROPHILS % 75.6 % (36.0-66.0); PLATELET COUNT, AUTOMATED 228 10^3/uL (150-450); RED BLOOD COUNT 4.44 10^6/uL (4.00-5.40); WHITE BLOOD COUNT 9.5 10^3/uL (4.0-10.0)
[2024-08-01 14:20] LABS: CK-MB VALUE MASS < 1.0 NG/ML (<3.6)
[2024-08-01 14:22] LABS: BLOOD UREA NITROGEN 23 MG/DL (9-23); CALCIUM LEVEL 9.4 MG/DL (8.3-10.6); CARBON DIOXIDE LEVEL 29 MMOL/L (20-31); CHLORIDE LEVEL 102 MMOL/L (98-107); CREATININE FOR GFR 1.48 MG/DL (0.55-1.30); GLOMERULAR FILTRATION RATE 34.7 (>32); GLUCOSE, FASTING 210 MG/DL (74-106); POTASSIUM SERUM 4.1 MMOL/L (3.5-5.1); SODIUM LEVEL 143 MMOL/L (136-145)
[2024-08-01 14:27] LABS: CPK CREATINE PHOSPHOKINASE 36 U/L (34-145); MB/CK RELATIVE INDEX 2.77 (< OR =4)
[2024-08-01 15:24] LABS: CK-MB VALUE MASS < 1.0 NG/ML (<3.6)
[2024-08-01 15:26] LABS: CPK CREATINE PHOSPHOKINASE 55 U/L (34-145); MB/CK RELATIVE INDEX 1.81 (< OR =4)
[2024-08-01 17:04] LABS: CK-MB VALUE MASS < 1.0 NG/ML (<3.6)
[2024-08-01 17:07] LABS: CPK CREATINE PHOSPHOKINASE 49 U/L (34-145); MB/CK RELATIVE INDEX 2.04 (< OR =4)
[2024-08-01 17:45] VITALS: BP 153/72; TEMP 97.3; O2SAT 97
== END 2024-08-01 18:03 | disposition home or self-care (01) ==
LOC: EDBD 13:15 → M ED 13:15
DX: R07.9 Chest pain, unspecified (principal); K21.9 Gastro-esophageal reflux disease without esophagitis; E11.9 Type 2 diabetes mellitus without complications; F41.9 Anxiety disorder, unspecified; Z87.442 Personal history of urinary calculi; Z79.52 Long term (current) use of systemic steroids; Z79.4 Long term (current) use of insulin; Z79.899 Other long term (current) drug therapy; Z88.8 Allergy status to other drugs, medicaments and biological substances

== ENCOUNTER → 2025-01-28 | Outpatient (CLI) | payer MEDICAID, MEDICARE ==
[2025-01-28 12:50] LABS: BASO # 0.1 10^3/uL (0.0-0.2); BASO % 0.7 % (0.0-1.0); EOS # 0.2 10^3/uL (0.0-0.5); EOS % 1.7 % (0.0-3.0); LYMPH # 2.0 10^3/uL (1.5-5.0); LYMPH % 21.5 % (24.0-44.0); MONO # 0.8 10^3/uL (0.0-0.8); MONO % 8.0 % (2.0-8.0); NEUTROPHILS # 6.4 10^3/uL (1.5-8.5); NEUTROPHILS % 67.7 % (36.0-66.0); PLATELET COUNT, AUTOMATED 259 10^3/uL (150-450)
[2025-01-28 13:04] LABS: ESTIMATED AVERAGE GLUCOSE 197.0 MG/DL (60-110)
[2025-01-28 13:26] LABS: ALT/SGPT 17.0 U/L (7.0-40); AST/SGOT 17.0 U/L (<34); CALCIUM LEVEL 8.8 MG/DL (8.3-10.6); CARBON DIOXIDE LEVEL 28.0 MMOL/L (20-31); CHLORIDE LEVEL 101.0 MMOL/L (98-107); CHOLESTEROL LEVEL 189.0 MG/DL (<200); CHOLESTEROL RISK RATIO 3.32 (<5); CREATININE FOR GFR 1.36 MG/DL (0.55-1.30); GLOMERULAR FILTRATION RATE 38.4 (>32); LDL CHOLESTEROL 103.6 MG/DL (<100); NON-HDL-C 132.2 MG/DL; POTASSIUM SERUM 4.0 MMOL/L (3.5-5.1); SODIUM LEVEL 141.0 MMOL/L (136-145); TRIGLYCERIDES LEVEL 143.0 MG/DL (<150)
[2025-01-28 13:50] LABS: CREATININE, URINE 158.9 MG/DL; MALB URINE SIEMENS 8.0 MG/L; MAU/CREAT RATIO 5.0 MCG/MG (0.0-30.0)
== END ==
LOC: M WUC 10:10
PROVIDERS: ATTEND Family Medicine
DX: E11.9 Type 2 diabetes mellitus without complications (principal); E07.9 Disorder of thyroid, unspecified; I27.20 Pulmonary hypertension, unspecified

== ENCOUNTER → 2025-01-28 | Outpatient (CLI) | payer MEDICAID, MEDICARE | LOC: M WUC 10:12 | PROVIDERS: ATTEND Internal Medicine Critical Care Medicine | DX: I27.20 Pulmonary hypertension, unspecified (principal) ==

== ENCOUNTER → 2025-01-30 | Outpatient (CLI) | payer MEDICARE | LOC: M WUC 10:34 | PROVIDERS: ATTEND Family Medicine | DX: J84.10 Pulmonary fibrosis, unspecified (principal) ==